=== PATIENT | male | born 1960 | race Caucasian/White ===

== ENCOUNTER 2016-09-02 09:51 | Day surgery (SDC) | payer OTHER ==
[2016-08-26 10:06] LABS: APPEARANCE,URINE CLEAR; BILIRUBIN,URINE NEGATIVE (NEGATIVE); GLUCOSE, URINE NEGATIVE (NEGATIVE); KETONES,URINE NEGATIVE (NEGATIVE); LEUKOCYTE ESTERASE,URINE NEGATIVE (NEGATIVE); NITRITE,URINE NEGATIVE (NEGATIVE); PROTEIN,URINE NEGATIVE (NEGATIVE); URINE SPECIFIC GRAVITY 1.027; UROBILINOGEN,URINE NEGATIVE mg/dL (<2.0)
[2016-08-26 10:13] LABS: ABSOLUTE EOSINOPHILS # (AUTO) 0.1 10^3/uL (0.0-0.6); ABSOLUTE LYMPHOCYTES (AUTO) 1.3 10^3/uL (0.5-4.7); ABSOLUTE MONOCYTES (AUTO) 0.7 10^3/uL (0.1-1.4); ABSOLUTE NEUT (AUTO) 3.9 10^3/uL (1.7-8.2); BASOPHILS % (AUTO) 0.5 % (0-2); HEMOGLOBIN 13.8 g/dL (13.5-17.0); HGB HCT DIFFERENCE 0.4; LYMPHOCYTES % (AUTO) 22.3 % (13-45); MEAN CORPUSCULAR HEMOGLOBIN 29.7 pg (27.0-33.4); MEAN CORPUSCULAR HGB CONC 33.6 g/dL (32.0-36.0); MEAN CORPUSCULAR VOLUME 88 fl (80-97); MONOCYTES % (AUTO) 11.9 % (3-13); RED BLOOD COUNT 4.64 10^6/uL (4.35-5.55); RED CELL DISTRIBUTION WIDTH 13.7 % (11.5-14.0); SEGMENTED NEUTROPHILS % (AUTO) 64.3 % (42-78)
[2016-08-26 10:37] LABS: ANION GAP 10 (5-19); BLOOD UREA NITROGEN 22 mg/dL (7-20); CALCIUM 9.4 mg/dL (8.4-10.2); CARBON DIOXIDE 26 mmol/L (22-30); CHLORIDE 106 mmol/L (98-107); CREATININE RESULT 1.01 mg/dL (0.52-1.25); GLUCOSE 104 mg/dL (75-110); POTASSIUM 4.5 mmol/L (3.6-5.0); SODIUM 142.3 mmol/L (137-145)
--- NOTE | 2016-08-26 11:00 | EKG REPORT ---
SEVERITY:- BORDERLINE ECG - SINUS RHYTHM BORDERLINE LEFT AXIS DEVIATION BORDERLINE T ABNORMALITIES, INFERIOR LEADS : Confirmed by: Ashley Roth 26-Aug-2016 10:59:53
[~2016-09-02 09:51] MED LIST: CEFAZOLIN 2 GM/D5W RTU 2 GM/50 ML RTUPB IV PRN; RINGERS SOLUTION,LACTATED 1,000 ML IV PRN
[2016-09-02] MEDS ORDERED: GLYCOPYRROLATE INJ 0.4 MG/2 ML VIAL ONE (09:54)
[2016-09-02] MEDS ORDERED: DEXAMETHASONE SOD PHOSPHATE INJ 4 MG/1 ML VIAL ONE (09:54)
[2016-09-02] MEDS ORDERED: METOCLOPRAMIDE HCL INJ/PF 10 MG/2 ML SDV ONE (09:54)
[2016-09-02] MEDS ORDERED: KETOROLAC TROMETHAMINE 60 MG/2 ML SDV ONE (09:54)
[2016-09-02] MEDS ORDERED: ROCURONIUM BROMIDE INJ 50 MG/5 ML VIAL IV ONE (09:54)
[2016-09-02] MEDS ORDERED: SUCCINYLCHOLINE CHLORIDE INJ 200 MG/10 ML VIAL ONE (09:54)
[2016-09-02] MEDS ORDERED: ONDANSETRON HCL INJ/PF 4 MG/2 ML SDV ONE (09:54)
[2016-09-02] MEDS ORDERED: LIDOCAINE 2% INJ-PF (20 MG/ML) 10 ML AMPUL ONE (09:54)
[2016-09-02] MEDS ORDERED: BUPIVACAINE HCL 0.5 % INJ/PF 30 ML SDV ONE (11:30)
[2016-09-02] MEDS ORDERED: PROPOFOL INJ 200 MG/20 ML VIAL IV ONE (12:47)
[2016-09-02] MEDS ORDERED: MIDAZOLAM 2 MG/2 ML INJ ONE (12:47)
[2016-09-02] MEDS ORDERED: FENTANYL CITRATE INJ/PF 250 MCG/5 ML AMPULE ONE (12:47)
[2016-09-02] MEDS ORDERED: DEXMEDETOMIDINE INJ 80 MCG/20 ML VIAL IV ONE (12:47)
[2016-09-02] MEDS ORDERED: ACETAMINOPHEN 100 ML IV ONE (12:47)
[2016-09-02] MEDS ORDERED: EPHEDRINE SULFATE INJ 50 MG/1 ML AMPULE ONE (12:48)
[2016-09-02] MEDS ORDERED: FENTANYL CITRATE INJ/PF 100 MCG/2 ML AMPUL IV PRN ×3 (14:17)
[2016-09-02] MEDS ORDERED: MORPHINE SULFATE 10 MG/ML INJ IV PRN ×2 (14:17→14:48)
[2016-09-02] MEDS ORDERED: DIPHENHYDRAMINE HCL 50 MG/ML VIAL IV PRN (14:17)
[2016-09-02] MEDS ORDERED: PROMETHAZINE HCL INJ 25 MG/1 ML VIAL IV PRN ×2 (14:17)
[2016-09-02] MEDS ORDERED: MEPERIDINE HCL/PF INJ 25 MG/1 ML DISP.SYRIN IV PRN (14:17)
--- NOTE | 2016-09-02 14:37 | PDOC DISCHARGE SUMMARY ---
Discharge Summary (SDC) - Discharge Final Diagnosis: Painful Hardware Left Wrist Date of Surgery: 09/02/16 Discharge Date: 09/02/16 Condition: Good Treatment or Instructions: Schedule Follow Up w/ Dr. Baldev Sherman @ [facility] for Surgery to be seen in 10-14 days or as scheduled Tiline: Matthews: Argyle: May remove dressing on postop day #3 keep incision covered and dry. Ice and elevate May begin finger range of motion attempting to make full fist. Stool softener of choice when on pain medication. Prescriptions: Oxycodone HCl 5 mg PO Q6 PRN #45 tablet PRN Reason: Discharge Diet: As Tolerated Discharge Activity: No Lifting Over 10 Pounds, No Lifting/Push/Pulling Report the Following to Your Physician Immediately: Increase in Pain, Fever over 101 Degrees, Unusual Bleeding, Redness, Swelling, Warmth, Increased Soreness, Drainage-Foul Smelling, Numbness, Tingling Sensation
[2016-09-02] MEDS: FENTANYL CITRATE INJ/PF 100 MCG/2 ML AMPUL ONE ×3 (14:40→14:50)
[2016-09-02] MEDS ORDERED: OXYCODONE-ACETAMINOPHEN 5-325 MG TABLET PO PRN (14:48)
[2016-09-02] MEDS ORDERED: ONDANSETRON HCL INJ/PF 4 MG/2 ML SDV IV PRN (14:48)
--- NOTE | 2016-09-02 14:48 | Operative Report ---
Operative Report DATE OF SURGERY: 09/02/16 PREOPERATIVE DIAGNOSIS: Painful Hardware Right Left POSTOPERATIVE DIAGNOSIS: Same + Extensor Adhesions OPERATION: Removal Hardware Left Wrist w/ Extensor Tenolysis SURGEON: JACQUI CABRERA ANESTHESIA: GA COMPLICATIONS: None ESTIMATED BLOOD LOSS: Minimal PROCEDURE: Indication for above procedure: Pleasant 56-year-old male who sustained a somewhat complex injury to his left wrist in the early 1999's. He underwent 4 corner fusion which ultimately failed and then a total wrist fusion in 2011. He states he had been doing well until he began having pain along the dorsum of his hand. X-rays were done in my office which demonstrate loosening of the fusion plate. Furthermore patient complained of difficulty abducting the middle and ring digits likely secondary to extensor adhesions. at that point we discussed treatment options including operative versus nonoperative intervention. After discussing risks and benefits patient consented for removal of hardware left wrist with possible revision arthrodesis, extensor tenolysis Procedure In Detail: Patient was seen and evaluated in the preoperative holding area. The LEFT upper extremity was initialized and marked. Patient received 2g of Ancef IV for bacterial prophylaxis. Patient was taken back to the operative room where transferred to the operative table and placed under general anesthesia. Once they were adequately anesthetized a nonsterile tourniquet was placed on the upper extremity. A surgical team debriefing was performed ensuring all instrumentation was available, the surgical procedure was discussed with possible concerns reviewed. The upper extremity was prepped with chlorhexidine and alcohol and draped in a sterile fashion. A timeout was done identifying correct patient, procedure and extremity everyone in attendance agree with this and verbalized no concerns. The extremity was exsanguinated the tourniquet was inflated to 200 mmHg. Patient's previous longitudinal skin incision was utilized. Blunt dissection was done distally down to the plate. There is significant scarring at the distal aspect of the plate with evidence of bony overgrowth. The extensor tendons to the index through small finger were identified and retracted. The bone overlying the plate was carefully removed. All 3 distal screws were visualized and removed in their entirety. I then proceeded with removal of the adjacent screw. The appropriate size screwdriver was selected and the screw was attempted to be removed however the screw head was loose and broke from the underlying screw at this point I turned my attention to removal of the most proximal screws. The superficial radial nerve was identified within the skin flap and retracted. Blunt dissection was performed through the EDC/ECRB interval and the proximal aspect of the plate was isolated. The proximal 3 screws were identified and removed in their entirety. The plate was then able to be lifted with a elevator and removed from the distal aspect. I then turned my attention to the broken screw within the third metacarpal base. Utilizing the [employer] screw removal set the appropriate size cone was chosen to remove excess bone from around the screw. Once this was completed I was able to grab a small portion of the screw and removed in its entirety. Any excess bone debris was removed. All screw holes were curetted to good bleeding bone. Under C-arm fluoroscopy I confirmed no evidence of motion at the radiocarpal articulation with complete bone bridging. There was some micromotion at the third CMC joint but I did not feel third CMC arthrodesis was required. The wound was then copiously irrigated with normal saline. The hole at the third metacarpal base was approximately 2 mm in diameter and thus I decided to proceed with allograft bone grafting. Utilizing [employer] DBX the hole was filled with a proximally 0.7 mL of bone matrix. I then closed the soft tissue of the CMC capsule over the bone defect with interrupted 0 Vicryl sutures were inverted to avoid irritation of the extensor tendons. I then performed an extensive extensor tenolysis of the index middle and ring finger including tenolysis at the level of the extensor retinaculum of the wrist and distal forearm. The EPL was also tenolysed as well. The extensor tenolysis was complex and compounded by the fact there is previous hardware crossing the wrist articulation with significant scarring not only to the hardware but underlying metacarpal. Any adhesions were carefully removed until there was full passive motion of all digits. Active motion was tested by checking excursion of the tendon from the proximal forearm wound confirming full digit extension. The tourniquet was then deflated. Compression was applied for 2 minutes. Any peripheral vasculature was coagulated with bipolar cautery until the wound was dry. Subcutaneous tissues were closed with interrupted 3-0 Monocryl suture. Skin was closed a running subcuticular 3-0 Monocryl reinforced with Dermabond and Steri-Strips. 20 mL of 0.5% Marcaine without epinephrine was injected for postoperative pain control. Wound was dressed with 4 x 4's and a soft dressing. Sponge counts, instrument counts, needle counts counts were correct. Patient was then awoken from anesthesia. Transferred from the operating room table to the operating room stretcher. There was no intraoperative complications patient tolerated procedure well stable to PACU. Postoperative plan: Patient will follow the office in 2 weeks at which point we will obtain radiographs. Patient will begin digit range of motion immediately.
[2016-09-02] MEDS ORDERED: OXYCODONE-ACETAMINOPHEN 5-325 MG TABLET ONE (15:18)
[2016-09-02 16:24] VITALS: BP 119/74
== END 2016-09-02 16:20 | disposition home or self-care (01) ==
LOC: OROUT 09:51
PROVIDERS: ATTEND Orthopaedic Surgery
PROC: 0RPP04Z Removal of Internal Fixation Device from Left Wrist Joint, Open Approach (ICD-10-PCS; 2016-09-02)
PROC: 0LN60ZZ Release Left Lower Arm and Wrist Tendon, Open Approach (ICD-10-PCS; principal; 2016-09-02 12:30)
DX: M19.132 Post-traumatic osteoarthritis, left wrist (principal); Z47.2 Encounter for removal of internal fixation device; E78.00 Pure hypercholesterolemia, unspecified; I10 Essential (primary) hypertension; G89.4 Chronic pain syndrome; K21.9 Gastro-esophageal reflux disease without esophagitis; F32.9 Major depressive disorder, single episode, unspecified; F41.9 Anxiety disorder, unspecified; Z79.1 Long term (current) use of non-steroidal anti-inflammatories (NSAID); Z86.14 Personal history of Methicillin resistant Staphylococcus aureus infection; Z79.899 Other long term (current) drug therapy
CPT/HCPCS: 93005; 36415; 85025; 80048; 81001; 71020; 73100; 93010; 25295 ×4; 20680; J2250; J3490 ×4; J1100; J1885; J3010 ×2; J2765; J0330; J2405; J2704; J0690; J0131; 01830

== ENCOUNTER → 2016-10-20 | Outpatient (CLI) | payer OTHER ==
[2016-10-20 11:59] LABS: ABSOLUTE EOSINOPHILS # (AUTO) 0.1 10^3/uL (0.0-0.6); ABSOLUTE LYMPHOCYTES (AUTO) 1.1 10^3/uL (0.5-4.7); ABSOLUTE MONOCYTES (AUTO) 0.6 10^3/uL (0.1-1.4); ABSOLUTE NEUT (AUTO) 3.6 10^3/uL (1.7-8.2); BASOPHILS % (AUTO) 0.8 % (0-2); HEMATOCRIT 38.4 % (37.9-51.0); HEMOGLOBIN 13.3 g/dL (13.5-17.0); HGB HCT DIFFERENCE 1.5; LYMPHOCYTES % (AUTO) 20.1 % (13-45); MEAN CORPUSCULAR HEMOGLOBIN 29.8 pg (27.0-33.4); MEAN CORPUSCULAR HGB CONC 34.7 g/dL (32.0-36.0); MEAN CORPUSCULAR VOLUME 86 fl (80-97); MONOCYTES % (AUTO) 11.6 % (3-13); PROTHROMBIN TIME 12.6 SEC (11.4-15.4); RED BLOOD COUNT 4.46 10^6/uL (4.35-5.55); RED CELL DISTRIBUTION WIDTH 13.9 % (11.5-14.0); SEGMENTED NEUTROPHILS % (AUTO) 65.5 % (42-78); WHITE BLOOD COUNT 5.5 10^3/uL (4.0-10.5)
[2016-10-20 12:00] LABS: PARTIAL THROMBOPLASTIN TIME 27.7 SEC (23.5-35.8)
[2016-10-20 12:08] LABS: APPEARANCE,URINE SLIGHTLY-CLOUDY; BILIRUBIN,URINE NEGATIVE (NEGATIVE); GLUCOSE, URINE NEGATIVE (NEGATIVE); KETONES,URINE TRACE mg/dL (NEGATIVE); LEUKOCYTE ESTERASE,URINE NEGATIVE (NEGATIVE); NITRITE,URINE NEGATIVE (NEGATIVE); PROTEIN,URINE NEGATIVE (NEGATIVE); URINE SPECIFIC GRAVITY 1.032; UROBILINOGEN,URINE NEGATIVE mg/dL (<2.0)
== END ==
LOC: OD 10:34
PROVIDERS: ATTEND Pain Medicine Interventional Pain Medicine
DX: Z79.01 Long term (current) use of anticoagulants (principal)
CPT/HCPCS: 36415; 81001; 85025; 85610; 85730

== ENCOUNTER 2016-11-25 08:23 | Day surgery (SDC) | payer OTHER ==
[2016-11-21 11:33] LABS: HEMATOCRIT 39.5 % (37.9-51.0); HEMOGLOBIN 13.6 g/dL (13.5-17.0); HGB HCT DIFFERENCE 1.3; MEAN CORPUSCULAR HGB CONC 34.4 g/dL (32.0-36.0); MEAN CORPUSCULAR VOLUME 87 fl (80-97); RED BLOOD COUNT 4.52 10^6/uL (4.35-5.55); RED CELL DISTRIBUTION WIDTH 13.9 % (11.5-14.0); WHITE BLOOD COUNT 7.8 10^3/uL (4.0-10.5)
[2016-11-21 11:46] LABS: PROTHROMBIN TIME 12.8 SEC (11.4-15.4)
[2016-11-21 11:47] LABS: PARTIAL THROMBOPLASTIN TIME 29.8 SEC (23.5-35.8)
[2016-11-21 11:50] LABS: APPEARANCE,URINE SLIGHTLY-CLOUDY; BILIRUBIN,URINE NEGATIVE (NEGATIVE); GLUCOSE, URINE NEGATIVE (NEGATIVE); KETONES,URINE TRACE mg/dL (NEGATIVE); LEUKOCYTE ESTERASE,URINE NEGATIVE (NEGATIVE); NITRITE,URINE NEGATIVE (NEGATIVE); PROTEIN,URINE NEGATIVE (NEGATIVE); URINE SPECIFIC GRAVITY 1.036; UROBILINOGEN,URINE NEGATIVE mg/dL (<2.0)
--- NOTE | 2016-11-21 19:37 | EKG REPORT ---
SEVERITY:- ABNORMAL ECG - SINUS BRADYCARDIA BORDERLINE LEFT AXIS DEVIATION NONSPECIFIC T ABNORMALITIES, INFERIOR LEADS : Confirmed by: Ashley Roth 21-Nov-2016 19:36:43
[~2016-11-25 08:23] MED LIST changes: +BUPIVACAINE HCL 0.25% /EPINEPHRINE INJ/PF 30 ML SDV ONE; +CEFAZOLIN 1 GM/D5W RTU 1 GM/50 ML RTUPB IV PRN; -CEFAZOLIN 2 GM/D5W RTU 2 GM/50 ML RTUPB IV PRN; +LACTATED RINGERS 1000 ML IV PRN; +LIDOCAINE 0.5% INJ-PF (5 MG/ML) 50 ML SDV SUBCUT PRN; +LIDOCAINE 1% INJ-PF (10 MG/ML) 30 ML SDV ONE; -RINGERS SOLUTION,LACTATED 1,000 ML IV PRN; +SODIUM BICARBONATE 8.4% INJ 50 MEQ/50 ML DISP.SYRIN ONE
[2016-11-25] MEDS ORDERED: LIDOCAINE 1% INJ-PF (10 MG/ML) 30 ML SDV ONE (09:34)
[2016-11-25] MEDS ORDERED: MIDAZOLAM 2 MG/2 ML INJ ONE (11:12)
[2016-11-25] MEDS ORDERED: PROPOFOL INJ 200 MG/20 ML VIAL IV ONE (11:13)
[2016-11-25] MEDS ORDERED: FENTANYL CITRATE INJ/PF 100 MCG/2 ML AMPUL ONE (11:13)
[2016-11-25] MEDS ORDERED: DEXMEDETOMIDINE INJ 80 MCG/20 ML VIAL IV ONE (11:18)
[2016-11-25] MEDS ORDERED: DIPHENHYDRAMINE HCL 50 MG/ML VIAL IV PRN (12:22)
[2016-11-25] MEDS ORDERED: MEPERIDINE HCL/PF INJ 25 MG/1 ML DISP.SYRIN IV PRN (12:22)
[2016-11-25] MEDS ORDERED: FENTANYL CITRATE INJ/PF 100 MCG/2 ML AMPUL IV PRN ×3 (12:22)
[2016-11-25] MEDS ORDERED: OXYCODONE-ACETAMINOPHEN 5-325 MG TABLET PO PRN ×2 (12:22)
[2016-11-25] MEDS ORDERED: PROMETHAZINE HCL INJ 25 MG/1 ML VIAL IV PRN ×2 (12:22)
[2016-11-25] MEDS ORDERED: MORPHINE SULFATE 10 MG/ML INJ IV PRN (12:22)
[2016-11-25] MEDS ORDERED: CEFAZOLIN INJ 1 GM VIAL ONE (13:26)
[2016-11-25] MEDS: FENTANYL CITRATE INJ/PF 100 MCG/2 ML AMPUL ONE ×2 (13:37→13:49)
[2016-11-25] MEDS ORDERED: ONDANSETRON HCL INJ/PF 4 MG/2 ML SDV IV PRN (13:47)
[2016-11-25] MEDS ORDERED: HYDROCODONE/ACETAMINOPHEN 5-325 MG TABLET PO PRN (13:47)
--- NOTE | 2016-11-25 13:53 | OPERATIVE REPORT E ---
Operative Report NAME: ALEXANDREA URIBE : 1960 AGE: 56Y DATE OF SURGERY: 11/25/2016 ROOM: PREOPERATIVE DIAGNOSIS: Post lumbar laminectomy pain syndrome. POSTOPERATIVE DIAGNOSIS: Post lumbar laminectomy pain syndrome. PROCEDURE PERFORMED: Implantation of dual-octrode spinal cord stimulator system, Medtronic, and implantable pulse generator. PRIMARY SURGEON: CHARLENE SOLARES M.D. SUBSTATION INSPECTOR: Dr. Bossman Scott ANESTHESIA: Monitored anesthesia care with sedation. OPERATIVE FINDINGS: Dual-octrode lead placed at mid body T8 extending to the top of the T10 vertebral body. ESTIMATED BLOOD LOSS: 5 mL. COMPLICATIONS: None. SPECIMENS REMOVED: None. PERIOPERATIVE ANTIBIOTICS: Ancef 1 g was given perioperatively. OPERATIVE INDICATIONS: The patient is a 56-year-old male with post lumbar laminectomy pain syndrome. He underwent a successful trial of spinal cord stimulator system with Medtronic previously and had excellent relief in pain. He has opted to proceed with permanent implantation. Risks and benefits were discussed at length with the patient, including, but not limited to, bleeding, bruising, infection, injury to nerves, arteries, veins, loss of bowel or bladder function, paralysis and potentially even . The patient expressed understanding and agreed to proceed. OPERATIVE DETAIL: The patient was accompanied by the anesthesia staff to the operative suite where he was placed in a prone position. All pressure points were checked and padded. Standard ASA lines and monitors were applied and sedation was commenced. The patient was given 1 g Ancef perioperatively. The patient was prepped and draped in sterile fashion using chlorhexidine gluconate solution. He was draped using Perry drape and Ioban. The C-arm for fluoroscopic guidance was also draped into the sterile field. Using AP fluoroscopy, the planned site for needle entry was marked and the incision site was anesthetized with buffered 1% lidocaine using a 25-gauge needle. Deeper tissues were subsequently infiltrated with 0.25% Marcaine with 1:100,000 epinephrine in a volume of approximately 10 mL. Additionally, the planned site for implantable pulse generator implantation on the left buttock was likewise anesthetized with buffered 1% lidocaine over the skin and 0.25% Marcaine with epinephrine in deeper tissues. An incision was made using a #15 blade scalpel in the skin. Subsequently, blunt and Bovie dissection was utilized to expose the prevertebral fascia. Adequate hemostasis was noted. Once the prevertebral fascia was exposed, a 25-gauge, 3.5-inch spinal needle was advanced under intermittent AP fluoroscopic guidance to an area just short of the T12-L1 interspace. This tract was anesthetized with 1% buffered lidocaine. Subsequently, a 16-gauge Tuohy needle provided by the Medtronic kit was advanced under intermittent AP and lateral fluoroscopic guidance to the T1-T2 interspace. This was in a left paramedian approach. Loss of resistance was obtained with normal saline. At this juncture the lead provided by the Medtronic instruments sales representative, the 90-cm lead, was advanced through the needle and confirmed to be in the posterior epidural space with lateral fluoroscopy. An additional needle placement was then performed at the same interspace in the left paramedian approach with easy loss of resistance to normal saline and posterior placement of the second lead. Leads were advanced under continuous fluoroscopic guidance to the mid body of T8 spanning T9 vertebral body and to the top of T10 vertebral body. At this juncture the leads were connected to the programming device and the Medtronic instruments sales representative in the room spoke with the patient who was awakened at the time and was found to have excellent stimulation at all painful areas. At this point 0 [address] was used to place a pursestring suture around each of the needles. The needles were subsequently removed under continuous fluoroscopic guidance to ensure no lead migration. Once needles were removed over the leads, the anchor provided by the Medtronic kit was advanced over the leads and deployed after pursestring suture was tightened. The anchor was then affixed to the prevertebral fascia utilizing the tied pursestring suture and an additional 0-Mersilene stay suture. This was performed in the exact same fashion on the other lead. The incision site was then copiously irrigated with a dilute Betadine solution. Attention was then turned to the left buttock pocket where an incision was made using a #15 blade scalpel and deep and blunt dissection was utilized to create an adequately sized pocket. Adequate hemostasis was assured with electrocautery. Tunneling was then performed using initial numbing with a 3.5-inch 25-gauge spinal needle and 1% lidocaine and then the tunneling tool provided by the Medtronic instruments sales representative was utilized to tunnel from midline to the buttock pocket. The leads were threaded through the tunneling device and connected to the implantable pulse generator. At this point impedances were checked and noted to be good. The leads were placed in strain relief loops both in the midline and in the buttock pocket, and the implantable pulse generator was placed in the pocket with ease. Both incisions were copiously irrigated with dilute Betadine solution. Subsequently closure ensued in an interrupted fashion with 3-0 Vicryl suture. Skin was then closed using Dermabond tape and glue. The patient tolerated the procedure well and was accompanied by anesthesia staff to the postanesthesia recovery unit. He will be seen in followup at [facility] tomorrow for a wound check. DICTATING PHYSICIAN: CHARLENE SOLARES M.D. [id number] PHY#: [id number] ID: [id number] JOB#: [id number] ACCT: [id number] cc:CHARLENE SOLARES M.D. >
[2016-11-25 18:00] VITALS: BP 100/59
== END 2016-11-25 15:35 | disposition home or self-care (01) ==
LOC: OROUT 08:23
PROVIDERS: ATTEND Pain Medicine Interventional Pain Medicine
PROC: 00HU3MZ Insertion of Neurostimulator Lead into Spinal Canal, Percutaneous Approach (ICD-10-PCS; 2016-11-25)
PROC: 0JH70MZ Insertion of Stimulator Generator into Back Subcutaneous Tissue and Fascia, Open Approach (ICD-10-PCS; principal; 2016-11-25 10:30)
DX: M54.16 Radiculopathy, lumbar region (principal); M96.1 Postlaminectomy syndrome, not elsewhere classified; E78.00 Pure hypercholesterolemia, unspecified; I10 Essential (primary) hypertension; R53.82 Chronic fatigue, unspecified; Z79.899 Other long term (current) drug therapy; Z87.891 Personal history of nicotine dependence
CPT/HCPCS: 93005; 36415; 85027; 85610; 85730; 81001; 71020; 72080; 93010; 63685; 63650; C1820; C1787; J2250; J3490 ×3; J0690 ×2; J3010; J2704; 300

== ENCOUNTER → 2017-03-10 | Outpatient (CLI) | payer OTHER ==
--- NOTE | 2017-03-10 10:17 | RADIOLOGY REPORT (SQ) ---
EXAM DESCRIPTION: CHEST PA/LATERAL COMPLETED DATE/TIME: 03/10/2017 9:23 am REASON FOR STUDY: CONTACT WITH AND (SUSPECTED) EXPOSURE TO ASBESTOS COMPARISON: Two-view chest 11/21/2016, 08/26/2016 EXAM PARAMETERS: NUMBER OF VIEWS: two views TECHNIQUE: Digital Frontal and Lateral radiographic views of the chest acquired. RADIATION DOSE: NA LIMITATIONS: none FINDINGS: LUNGS AND PLEURA: No opacities, masses or pneumothorax. No pleural effusion. MEDIASTINUM AND HILAR STRUCTURES: No masses or contour abnormalities. Benign epicardial fat pad ashli cent to the left ventricular apex HEART AND VASCULAR STRUCTURES: Heart normal size. No evidence for failure. BONES: Lower cervical fusion hardware at the upper edge of the field of view. Thoracic neurostimulat or electrodes over the lower thoracic spine. HARDWARE: None in the chest. OTHER: No other significant finding. IMPRESSION: NO SIGNIFICANT RADIOGRAPHIC FINDING IN THE CHEST. No pleural effusions or calcified/noncalcified pleural plaques. TECHNICAL DOCUMENTATION: JOB ID: [id number] [employer]- All Rights Reserved
== END ==
LOC: OD 09:07
PROVIDERS: ATTEND Family Medicine
DX: Z77.090 Contact with and (suspected) exposure to asbestos (principal)
CPT/HCPCS: 71020

== ENCOUNTER → 2017-06-30 | Outpatient (CLI) | payer MEDICARE, OTHER ==
--- NOTE | 2017-06-30 12:16 | RADIOLOGY REPORT (SQ) ---
EXAM DESCRIPTION: FOREARM RIGHT COMPLETED DATE/TIME: 06/30/2017 11:43 am REASON FOR STUDY: UNSPECIFIED INJURY OF RIGHT FOREARM, INITIAL ENCOUNTER S59.911A UNSPECIFIED INJUR Y OF RIGHT FOREARM, INITIAL ENCOUN COMPARISON: None. NUMBER OF VIEWS: Two views. TECHNIQUE: Two radiographic images acquired of the right forearm, including elbow and wrist in at le ast one projection. LIMITATIONS: None. FINDINGS: MINERALIZATION: Normal. BONES: No acute fracture. No worrisome bone lesions. SOFT TISSUES: No obvious swelling or foreign body. OTHER: No other significant finding. IMPRESSION: NEGATIVE STUDY OF THE RIGHT FOREARM. NO RADIOGRAPHIC EVIDENCE OF ACUTE INJURY. TECHNICAL DOCUMENTATION: JOB ID: [id number] [employer]- All Rights Reserved
== END ==
LOC: OD 11:29
PROVIDERS: ATTEND Nurse Practitioner Family
DX: S59.911A Unspecified injury of right forearm, initial encounter (principal); X58.XXXA Exposure to other specified factors, initial encounter

== ENCOUNTER → 2017-09-07 | Outpatient (CLI) | payer MEDICARE, OTHER ==
--- NOTE | 2017-09-07 16:37 | RADIOLOGY REPORT (SQ) ---
EXAM DESCRIPTION: C SP 4 OR 5 VIEWS COMPLETED DATE/TIME: 09/07/2017 2:05 pm REASON FOR STUDY: OTHER SPECIFIED DORSOPATHIES, [id number] REGION M53.81 OTHER SPECIFIE D DORSOPATHIES, [id number] COMPARISON: None. NUMBER OF VIEWS: Five views. TECHNIQUE: AP, lateral, obliques and odontoid radiographic images acquired of the cervical spine. LIMITATIONS: None. FINDINGS: MINERALIZATION: Normal. ALIGNMENT: Anatomic. VERTEBRAE: Vertebral bodies of normal height. DISCS: Status post anterior fusion at C4-5, C5-6 and C6-7. Screw and plate device present anteriorly . Solid bony union appears to be present. Mild disc space loss at C3-4 with small osteophytes. FORAMINA: Severe narrowing on the left at C6-7. LATERAL AND POSTERIOR ELEMENTS: Status post posterior fusion at C4-5, C5-6 and C6-7 with bilateral ro d and screw devices noted posteriorly at these levels. Wire fusion is also noted along the spinous p rocesses of C6 and C7 HARDWARE: Screw and plate device anteriorly with nilam and screw device present posteriorly SOFT TISSUES: No masses or calcifications. Lung apices clear. OTHER: No other significant finding. IMPRESSION: Degenerative changes and postsurgical changes as described. TECHNICAL DOCUMENTATION: JOB ID: [id number] [employer]- All Rights Reserved
== END ==
LOC: OD 13:45
PROVIDERS: ATTEND Pain Medicine Interventional Pain Medicine
DX: M53.81 Other specified dorsopathies, occipito-atlanto-axial region (principal); Z98.1 Arthrodesis status
CPT/HCPCS: 72050

== ENCOUNTER → 2017-12-29 | Outpatient (CLI) | payer OTHER ==
--- NOTE | 2017-12-30 09:43 | RADIOLOGY REPORT (SQ) ---
EXAM DESCRIPTION: PET CT WHOLE BODY COMPLETED DATE/TIME: 12/29/2017 10:10 pm REASON FOR STUDY: ELEVATED FGF-23 COMPARISON: None. RADIONUCLIDE AND DOSE: 10.0 mCi F18 FDG The route of agent administration: Intravenous FASTING BLOOD SUGAR: 77 mg/dl CONTRAST TYPE AND DOSE: No CT contrast given. TECHNIQUE: Blood glucose level was verified. Above dose of FDG was injected intravenously. 2-D seg mented attenuation correction images were obtained through the entire body. Noncontrast CT images we re obtained for attenuation correction and fusion with emission images. CT images were performed wit hout oral or intravenous contrast and are not sensitive for parenchymal lesions. A series of overlap ping emission PET images were obtained. Images reviewed and manipulated at independent work station by the radiologist. Images stored on PACS. LIMITATIONS: None. FINDINGS: HEAD AND NECK: No areas of abnormal metabolic activity in the soft tissues of the head and neck. CHEST: No areas of abnormal metabolic activity in the chest. ABDOMEN AND PELVIS: No areas of abnormal metabolic activity in the abdomen or pelvis. Expected physi ologic activity is present in the genitourinary system and bowel. EXTREMITIES: Focal area of increased activity in the soft tissues of the left hand between the 1st an d 2nd metacarpal. Mean SUV 6.0. No discrete finding on CT imaging. No other areas of abnormal meta bolic activity in the soft tissues of the extremities. BONES: No abnormal metabolic activity in the visualized skeleton. ADDITIONAL CT FINDINGS: Previous spinal surgery and orthopedic surgery with hardware. No other addit ional significant findings on the noncontrast CT images. OTHER: Background liver activity mean SUV 2.5. Background blood pool activity mean SUV 1.8. No othe r significant findings. IMPRESSION: 1. FOCAL AREA OF INCREASED METABOLIC ACTIVITY IN THE SOFT TISSUES OF THE LEFT HAND BETWEEN THE 1ST AN D 2ND METACARPAL. THIS IS NONSPECIFIC AND MAY BE RELATED TO MUSCULAR ACTIVITY OR POSSIBLY INFLAMMATI ON. SOFT TISSUE LESION OR TUMOR CANNOT BE ENTIRELY EXCLUDED. RECOMMEND CLINICAL CORRELATION AND IF THERE ARE ANY SUSPICIOUS FINDINGS, MAY CONSIDER MRI OF THE HAND. 2. OTHERWISE UNREMARKABLE PET-CT. NO OTHER AREAS OF ABNORMAL ACTIVITY. TECHNICAL DOCUMENTATION: JOB ID: [id number] [employer]- All Rights Reserved Reading location - IP/workstation name: [email or web address]
== END ==
LOC: RAD 17:11
PROVIDERS: ATTEND Internal Medicine Endocrinology, Diabetes & Metabolism
DX: R78.89 Finding of other specified substances, not normally found in blood (principal)
CPT/HCPCS: 78816; A9552

== ENCOUNTER 2018-08-06 07:03 | Day surgery (SDC) | payer OTHER, MEDICARE ==
[~2018-08-06 07:03] MED LIST changes: -BUPIVACAINE HCL 0.25% /EPINEPHRINE INJ/PF 30 ML SDV ONE; -CEFAZOLIN 1 GM/D5W RTU 1 GM/50 ML RTUPB IV PRN; -LACTATED RINGERS 1000 ML IV PRN; -LIDOCAINE 0.5% INJ-PF (5 MG/ML) 50 ML SDV SUBCUT PRN; -LIDOCAINE 1% INJ-PF (10 MG/ML) 30 ML SDV ONE; +LIDOCAINE 2% INJ-PF (20 MG/ML) 10 ML AMPUL ONE; +MIDAZOLAM 2 MG/2 ML INJ ONE; +PROPOFOL INJ 200 MG/20 ML VIAL IV ONE; -SODIUM BICARBONATE 8.4% INJ 50 MEQ/50 ML DISP.SYRIN ONE
[2018-08-06] MEDS ORDERED: ALBUTEROL SULFATE 0.083% NEB 2.5 MG/3 ML AMPUL NEB ONE (08:20)
[2018-08-06] MEDS ORDERED: FENTANYL CITRATE INJ/PF 100 MCG/2 ML AMPUL IV PRN ×3 (08:58)
[2018-08-06] MEDS ORDERED: MEPERIDINE HCL/PF INJ 25 MG/1 ML DISP.SYRIN IV PRN (08:58)
[2018-08-06] MEDS ORDERED: PROMETHAZINE HCL INJ 25 MG/1 ML VIAL IV PRN ×2 (08:58)
[2018-08-06] MEDS ORDERED: DIPHENHYDRAMINE HCL 50 MG/ML VIAL IV PRN (08:58)
[2018-08-06] MEDS ORDERED: ACETAMINOPHEN 325 MG TABLET PO PRN (09:42)
[2018-08-06] MEDS ORDERED: DEXTROSE 5%-1/2 NORMAL SALINE 1,000 ML IV PRN (09:42)
[2018-08-06] MEDS ORDERED: PROMETHAZINE HCL INJ 25 MG/1 ML VIAL INJ PRN (10:15)
[2018-08-06] MEDS ORDERED: SIMETHICONE 80 MG TAB.CHEW PO PRN (10:15)
[2018-08-06 10:35] VITALS: BP 117/72
--- NOTE | 2018-08-06 12:11 | Operative Report ---
Operative Report DATE OF SURGERY: 08/06/18 Operative Report: The risks, benefits and alternatives of the procedure including the risks of bleeding, perforation requiring surgery have been explained to the patient in detail and informed consent was obtained. The patient is brought back to the operating room and placed in the left, lateral decubital position. Timeout was called. Propofol medication is administered. A rectal examination is done which did did not reveal any masses, tears or fissures. An Olympus videoscope was introduced into the patient's rectum. The scope was then carefully advanced all the way to this cecum. The cecum was identified by the usual anatomical landmarks including the ileocecal valve as well as the appendiceal office. Photodocumentation is obtained. The scope was then sequentially pulled back via the various segments of the colon including the ascending colon, hepatic fle xure, transverse colon, splenic flexure, descending colon and finally into the rectosigmoid portions of the colon. Retroflexion maneuver was performed. The risks benefits and alternatives of the procedure explained to the patient in detail and informed consent is obtained.A GIF Olympus video scope was inserted into the patient's mouth and hypopharynx, the esophagus is identified intubated and insufflated, the scope was then advanced through the esophagus stomach and duodenum, retroflexion maneuver is done, the esophagus stomach and first and second portions of the duodenum examined. PREOPERATIVE DIAGNOSIS: Colorectal cancer screening. Gastroesophageal reflux disease POSTOPERATIVE DIAGNOSIS: Rectal polyp attempted snare polypectomy, no tissue retrieved. Internal hemorrhoids. Hiatal hernia. Gastritis status post biopsy rule out Helicobacter pylori OPERATION: Colonoscopy with snare polypectomy. EGD with biopsy SURGEON: NICOLA BROWNING ANESTHESIA: LMAC TISSUE REMOVED OR ALTERED: As noted above. COMPLICATIONS: None. ESTIMATED BLOOD LOSS: None. INTRAOPERATIVE FINDINGS: As noted above. PROCEDURE: Patient tolerated the procedure well. No immediate postprocedure complications are noted. Patient discharged in good condition. Discharge date 08/06/2018. Discharge diet: Regular. Discharge activity: Regular. 2-3-week follow-up to discuss findings. Patient is instructed to call the office or proceed to the emergency room should he be any further problems or questions. 5-year surveillance colonoscopy.
--- NOTE | 2018-08-06 12:14 | EKG REPORT ---
SEVERITY:- ABNORMAL ECG - SINUS RHYTHM NONSPECIFIC T ABNORMALITIES, INFERIOR LEADS : Confirmed by: Jeffrey Graham MD 06-Aug-2018 12:13:47
== END 2018-08-06 10:40 | disposition home or self-care (01) ==
LOC: OROUT 07:03
PROVIDERS: ATTEND Internal Medicine Gastroenterology
DX: Z12.11 Encounter for screening for malignant neoplasm of colon (principal); D12.7 Benign neoplasm of rectosigmoid junction; K64.8 Other hemorrhoids; K29.70 Gastritis, unspecified, without bleeding; K44.9 Diaphragmatic hernia without obstruction or gangrene; K21.9 Gastro-esophageal reflux disease without esophagitis; D64.9 Anemia, unspecified; E78.2 Mixed hyperlipidemia; I10 Essential (primary) hypertension; G89.4 Chronic pain syndrome; R53.82 Chronic fatigue, unspecified; G47.33 Obstructive sleep apnea (adult) (pediatric); Z87.891 Personal history of nicotine dependence; Z79.899 Other long term (current) drug therapy; Z79.1 Long term (current) use of non-steroidal anti-inflammatories (NSAID); Z79.891 Long term (current) use of opiate analgesic
CPT/HCPCS: 43239; 45385; 88305 ×2; 93005; 93010; J2250; J2704; J3490; 813

== ENCOUNTER → 2018-12-17 | Outpatient (CLI) | payer MEDICARE, OTHER ==
--- NOTE | 2018-12-17 12:05 | RADIOLOGY REPORT (SQ) ---
EXAM DESCRIPTION: SHOULDER RIGHT 2 OR MORE VIEWS COMPLETED DATE/TIME: 12/17/2018 11:54 am REASON FOR STUDY: PAIN IN RIGHT SHOULDER M25.511 PAIN IN RIGHT SHOULDER COMPARISON: None. NUMBER OF VIEWS: Three views. TECHNIQUE: Internal rotation, external rotation, and Y view images acquired of the right shoulder. LIMITATIONS: None. FINDINGS: MINERALIZATION: Normal. BONES: No acute fracture or dislocation. No worrisome bone lesions. JOINTS: Postsurgical changes with anchors in the humeral head. VISUALIZED LUNGS AND RIBS: No pneumothorax. No rib fracture. SOFT TISSUES: No radiopaque foreign body. OTHER: No other significant finding. IMPRESSION: Postsurgical changes. No acute findings. TECHNICAL DOCUMENTATION: JOB ID: [id number] [employer]- All Rights Reserved Reading location - IP/workstation name: [email or web address]
== END ==
LOC: OD 11:46
PROVIDERS: ATTEND Family Medicine
DX: M25.511 Pain in right shoulder (principal)

== ENCOUNTER → 2019-02-03 | Day surgery (SDC) | payer OTHER, MEDICARE ==
[~2019-02-03] MED LIST changes: -LIDOCAINE 2% INJ-PF (20 MG/ML) 10 ML AMPUL ONE; +LIDOCAINE 2% JELLY 5 ML TUBE ONE; -MIDAZOLAM 2 MG/2 ML INJ ONE; -PROPOFOL INJ 200 MG/20 ML VIAL IV ONE
== END ==
LOC: END 13:09
PROVIDERS: ATTEND Internal Medicine Gastroenterology
DX: K21.9 Gastro-esophageal reflux disease without esophagitis (principal)
CPT/HCPCS: 91010

== ENCOUNTER → 2019-03-07 | Day surgery (SDC) | payer OTHER, MEDICARE | LOC: END 07:35 | PROVIDERS: ATTEND Internal Medicine Gastroenterology | DX: K21.9 Gastro-esophageal reflux disease without esophagitis (principal) | CPT/HCPCS: 91034 ==

== ENCOUNTER → 2019-04-18 | Outpatient (CLI) | payer MEDICARE, OTHER ==
--- NOTE | 2019-04-18 12:11 | RADIOLOGY REPORT (SQ) ---
EXAM DESCRIPTION: FINGERS LEFT COMPLETED DATE/TIME: 04/18/2019 11:51 am REASON FOR STUDY: PAIN IN LEFT HAND M79.642 PAIN IN LEFT HAND M79.642 PAIN IN LEFT HAND M79.642 P AIN IN LEFT HAND COMPARISON: None. NUMBER OF VIEWS: Three views. TECHNIQUE: AP, lateral, and oblique images acquired of the left second finger. LIMITATIONS: None. FINDINGS: MINERALIZATION: Normal. BONES: No acute fracture or dislocation. No worrisome bone lesions. Surgical changes in the 3rd metac arpal and distal radius. Previous fusion in the wrist with hardware. JOINTS: No erosions. No mitra-articular osteopenia. No chondrocalcinosis. SOFT TISSUES: No swelling. No calcifications. OTHER: No other significant finding. IMPRESSION: NEGATIVE RADIOGRAPHS OF THE LEFT SECOND FINGER. NO EXPLANATION FOR PAIN. TECHNICAL DOCUMENTATION: JOB ID: [id number] [employer]- All Rights Reserved Reading location - IP/workstation name: [email or web address]
[2019-04-18 12:52] LABS: URIC ACID 4.7 mg/dL (3.5-8.5)
[2019-04-18 12:55] LABS: C-REACTIVE PROTEIN < 5.0 mg/L (<10.0)
== END ==
LOC: OD 11:24
PROVIDERS: ATTEND Nurse Practitioner Acute Care
DX: M79.642 Pain in left hand (principal)
CPT/HCPCS: 36415; 84550; 86140; 86430

== ENCOUNTER → 2019-05-04 | Outpatient (CLI) | payer MEDICARE, OTHER ==
[2019-05-04 10:57] LABS: ABSOLUTE EOSINOPHILS # (AUTO) 0.1 10^3/uL (0.0-0.6); ABSOLUTE LYMPHOCYTES (AUTO) 1.2 10^3/uL (0.5-4.7); ABSOLUTE MONOCYTES (AUTO) 0.7 10^3/uL (0.1-1.4); ABSOLUTE NEUT (AUTO) 3.5 10^3/uL (1.7-8.2); BASOPHILS % (AUTO) 0.8 % (0-2); EOSINOPHILS % (AUTO) 2.3 % (0-6); HEMATOCRIT 40.4 % (37.9-51.0); HEMOGLOBIN 13.9 g/dL (13.5-17.0); LYMPHOCYTES % (AUTO) 22.1 % (13-45); MEAN CORPUSCULAR HEMOGLOBIN 30.4 pg (27.0-33.4); MEAN CORPUSCULAR HGB CONC 34.4 g/dL (32.0-36.0); MEAN CORPUSCULAR VOLUME 88 fl (80-97); MONOCYTES % (AUTO) 12.1 % (3-13); PLATELET COUNT 171 10^3/uL (150-450); RED BLOOD COUNT 4.58 10^6/uL (4.35-5.55); RED CELL DISTRIBUTION WIDTH 13.3 % (11.5-14.0); SEGMENTED NEUTROPHILS % (AUTO) 62.7 % (42-78); TOTAL CELLS COUNTED % (AUTO) 100 %; WHITE BLOOD COUNT 5.5 10^3/uL (4.0-10.5)
[2019-05-04 10:58] LABS: APPEARANCE,URINE CLEAR; BILIRUBIN,URINE NEGATIVE (NEGATIVE); COLOR,URINE YELLOW; GLUCOSE, URINE NEGATIVE (NEGATIVE); KETONES,URINE NEGATIVE (NEGATIVE); LEUKOCYTE ESTERASE,URINE NEGATIVE (NEGATIVE); NITRITE,URINE NEGATIVE (NEGATIVE); PROTEIN,URINE NEGATIVE (NEGATIVE); URINE SPECIFIC GRAVITY 1.029
[2019-05-04 11:02] LABS: INTERNATIONAL RATION (INR) 0.98
[2019-05-04 11:03] LABS: PARTIAL THROMBOPLASTIN TIME 30.6 SEC (23.5-35.8)
== END ==
LOC: OD 09:52
PROVIDERS: ATTEND Pain Medicine Interventional Pain Medicine
DX: D68.9 Coagulation defect, unspecified (principal)
CPT/HCPCS: 36415; 81001; 85025; 85610; 85730

== ENCOUNTER → 2019-05-04 | Outpatient (CLI) | payer MEDICARE, OTHER ==
--- NOTE | 2019-05-04 14:34 | RADIOLOGY REPORT (SQ) ---
EXAM DESCRIPTION: BARIUM SWALLOW ESOPHAGUS COMPLETED DATE/TIME: 05/04/2019 9:43 am REASON FOR STUDY: K21.9 GASTRO-ESOPHAGEAL REFLUX DISEASE WITHOUT ESOPHAGITIS K21.9 GASTRO-ESOPHAGEA L REFLUX DISEASE WITHOUT ESOPHAGITIS K44.9 DIAPHRAGMATIC HERNIA WITHOUT OBSTRUCTION OR GANGRENE COMPARISON: None. TECHNIQUE: Under fluoroscopic guidance, patient ingested effervescent granules followed by thick and thin barium. Fluoroscopic spot images and routine radiographic images acquired and stored on PACS. 12 MM BARIUM TABLET GIVEN: Tablet passed easily through the esophagus and into the stomach without de lay. LIMITATIONS: None. FLUOROSCOPY TIME: FLUORO TIME: 1 minutes 9 images saved to PACS. FINDINGS: NEUROMUSCULAR COORDINATION OF SWALLOW: Normal. No aspiration. ESOPHAGEAL MOTILITY: Normal peristalsis. No esophageal spasm. ESOPHAGEAL MUCOSA: Normal mucosa without masses or ulceration. GASTRO-ESOPHAGEAL JUNCTION: Moderately sized hiatal hernia. Significant gastroesophageal reflux to t he level of the clavicles. NON-GI TRACT STRUCTURES: No significant finding. OTHER: No other significant finding. IMPRESSION: MODERATELY SIZED HIATAL HERNIA WITH SIGNIFICANT GASTROESOPHAGEAL REFLUX. OTHERWISE UNRE MARKABLE STUDY. RECOMMENDATION: None COMMENT: None Quality ID [id number]: Final reports for procedures using fluoroscopy that document radiation exposure melody kale, or exposure time and number of fluorographic images (if radiation exposure indices are not avail able) TECHNICAL DOCUMENTATION: JOB ID: [id number] [employer]- All Rights Reserved Reading location - IP/workstation name: [email or web address] [id number]
== END ==
LOC: RAD 11:27
PROVIDERS: ATTEND Surgery
DX: K21.9 Gastro-esophageal reflux disease without esophagitis (principal); K44.9 Diaphragmatic hernia without obstruction or gangrene
CPT/HCPCS: 74220

== ENCOUNTER 2019-06-20 05:40 | Observation (INO) | payer OTHER, MEDICARE ==
[2019-05-27 09:30] LABS: HEMATOCRIT 40.7 % (37.9-51.0); HEMOGLOBIN 13.9 g/dL (13.5-17.0); MEAN CORPUSCULAR HGB CONC 34.1 g/dL (32.0-36.0); MEAN CORPUSCULAR VOLUME 88 fl (80-97); PLATELET COUNT 171 10^3/uL (150-450); RED BLOOD COUNT 4.64 10^6/uL (4.35-5.55); RED CELL DISTRIBUTION WIDTH 13.1 % (11.5-14.0); WHITE BLOOD COUNT 4.8 10^3/uL (4.0-10.5)
[2019-05-27 09:56] LABS: ANION GAP 7 (5-19); BLOOD UREA NITROGEN 25 mg/dL (7-20); CALCIUM 8.7 mg/dL (8.4-10.2); CARBON DIOXIDE 28 mmol/L (22-30); CHLORIDE 103 mmol/L (98-107); GLUCOSE 101 mg/dL (75-110); POTASSIUM 4.5 mmol/L (3.6-5.0)
--- NOTE | 2019-05-27 10:30 | RADIOLOGY REPORT (SQ) ---
EXAM DESCRIPTION: CHEST PA/LATERAL COMPLETED DATE/TIME: 05/27/2019 10:09 am REASON FOR STUDY: PREOP COMPARISON: 07/04/2015 EXAM PARAMETERS: NUMBER OF VIEWS: two views TECHNIQUE: Digital Frontal and Lateral radiographic views of the chest acquired. RADIATION DOSE: NA LIMITATIONS: none FINDINGS: LUNGS AND PLEURA: No opacities, masses or pneumothorax. No pleural effusion. Mild biapica l pleural scarring. MEDIASTINUM AND HILAR STRUCTURES: No masses or contour abnormalities. HEART AND VASCULAR STRUCTURES: Heart normal size. No evidence for failure. BONES: No acute findings. HARDWARE: Spinal stimulator device overlies lower thoracic spine. Partially visualized cervical post erior and anterior fusion hardware. OTHER: No other significant finding. IMPRESSION: No evidence of acute cardiopulmonary process. TECHNICAL DOCUMENTATION: JOB ID: [id number] [employer]- All Rights Reserved Reading location - IP/workstation name: [email or web address]
--- NOTE | 2019-05-27 18:08 | EKG REPORT ---
SEVERITY:- ABNORMAL ECG - SINUS BRADYCARDIA BORDERLINE LEFT AXIS DEVIATION ABNORMAL T, CONSIDER ISCHEMIA, INFERIOR LEADS : Confirmed by: Jeffrey Graham MD 27-May-2019 18:07:56
[~2019-06-20 05:40] MED LIST changes: +ACETAMINOPHEN 325 MG TABLET PO PRN; +CEFAZOLIN SODIUM 2 GM in DEXTROSE 5%-WATER 100 ML IV PRN; +IBUPROFEN 800 MG in NORMAL SALINE 250 ML IV PRN; +LACTATED RINGERS 1000 ML IV PRN; +LIDOCAINE 0.5% INJ-PF (5 MG/ML) 50 ML SDV SUBCUT PRN; -LIDOCAINE 2% JELLY 5 ML TUBE ONE
[2019-06-20] MEDS ORDERED: ACETAMINOPHEN 325 MG TABLET ONE (06:06)
[2019-06-20] MEDS ORDERED: PREGABALIN 50 MG CAPSULE ONE (06:06)
[2019-06-20] MEDS: PREGABALIN 50 MG CAPSULE PO PRN ×2 (06:23→22:38)
[2019-06-20] MEDS ORDERED: FENTANYL CITRATE INJ/PF 250 MCG/5 ML AMPULE ONE (06:27)
[2019-06-20] MEDS ORDERED: FENTANYL CITRATE INJ/PF 100 MCG/2 ML AMPUL ONE (06:27)
[2019-06-20] MEDS ORDERED: DEXAMETHASONE SOD PHOSPHATE INJ 4 MG/1 ML VIAL ONE (06:28)
[2019-06-20] MEDS ORDERED: MIDAZOLAM 2 MG/2 ML INJ ONE (06:28)
[2019-06-20] MEDS ORDERED: SUGAMMADEX SODIUM 200 MG/2 ML SDV IV ONE (06:28)
[2019-06-20] MEDS ORDERED: PROPOFOL INJ 200 MG/20 ML VIAL IV ONE (06:28)
[2019-06-20] MEDS ORDERED: ONDANSETRON HCL INJ/PF 4 MG/2 ML SDV ONE (06:28)
[2019-06-20] MEDS ORDERED: LIDOCAINE 0.5% INJ-PF (5 MG/ML) 50 ML SDV ONE (06:30)
[2019-06-20] MEDS ORDERED: BUPIVACAINE HCL 0.25 % INJ/PF (2.5 MG/1 ML) 30 ML VIAL ONE (07:20)
[2019-06-20] MEDS ORDERED: MEPERIDINE HCL/PF INJ 25 MG/1 ML DISP.SYRIN IV PRN (08:28)
[2019-06-20] MEDS ORDERED: PROMETHAZINE HCL INJ 25 MG/1 ML VIAL IV PRN ×2 (08:28)
[2019-06-20] MEDS ORDERED: FENTANYL CITRATE INJ/PF 100 MCG/2 ML AMPUL IV PRN ×3 (08:28)
[2019-06-20] MEDS ORDERED: DIPHENHYDRAMINE HCL 50 MG/ML VIAL IV PRN (08:28)
[2019-06-20] MEDS ORDERED: MORPHINE SULFATE 10 MG/ML INJ IV PRN (08:28)
[2019-06-20] MEDS ORDERED: ONDANSETRON HCL INJ/PF 4 MG/2 ML SDV IV PRN ×2 (08:28→10:41)
[2019-06-20] MEDS ORDERED: EPHEDRINE SULFATE INJ 50 MG/1 ML AMPULE ONE (10:39)
[2019-06-20] MEDS: FENTANYL CITRATE INJ/PF 100 MCG/2 ML AMPUL ONE ×2 (10:59→11:04)
[2019-06-20] MEDS: HYDROMORPHONE HCL INJ/PF 2 MG/ML AMPULE IV PRN ×3 (12:40→22:41)
[2019-06-20] MEDS ORDERED: ROCURONIUM BROMIDE INJ 50 MG/5 ML VIAL IV ONE (13:12)
[2019-06-20] MEDS ORDERED: SUCCINYLCHOLINE CHLORIDE INJ 200 MG/10 ML VIAL ONE (13:12)
[2019-06-20] MEDS: HYDROCOD/ACETAMIN 7.5-325 MG/15 ML ORAL SOLN UDCUP PO PRN (22:38)
[2019-06-21] MEDS: HYDROMORPHONE HCL INJ/PF 2 MG/ML AMPULE IV PRN ×5 (03:17→19:58)
[2019-06-21] MEDS: HYDROCOD/ACETAMIN 7.5-325 MG/15 ML ORAL SOLN UDCUP PO PRN (03:20)
[2019-06-21 05:42] LABS: ABSOLUTE NEUT (AUTO) 5.8 10^3/uL (1.7-8.2); BASOPHILS % (AUTO) 0.2 % (0-2); EOSINOPHILS % (AUTO) 0.4 % (0-6); HEMATOCRIT 38.5 % (37.9-51.0); HEMOGLOBIN 13.1 g/dL (13.5-17.0); LYMPHOCYTES % (AUTO) 13.2 % (13-45); MEAN CORPUSCULAR HEMOGLOBIN 30.1 pg (27.0-33.4); MEAN CORPUSCULAR VOLUME 89 fl (80-97); MONOCYTES % (AUTO) 12.8 % (3-13); PLATELET COUNT 130 10^3/uL (150-450); RED BLOOD COUNT 4.33 10^6/uL (4.35-5.55); SEGMENTED NEUTROPHILS % (AUTO) 73.4 % (42-78); TOTAL CELLS COUNTED % (AUTO) 100 %; WHITE BLOOD COUNT 7.9 10^3/uL (4.0-10.5)
[2019-06-21 05:53] LABS: ANION GAP 6 (5-19); BLOOD UREA NITROGEN 16 mg/dL (7-20); CALCIUM 8.1 mg/dL (8.4-10.2); CARBON DIOXIDE 29 mmol/L (22-30); CHLORIDE 104 mmol/L (98-107); GLUCOSE 90 mg/dL (75-110); POTASSIUM 3.7 mmol/L (3.6-5.0)
--- NOTE | 2019-06-21 07:16 | Operative Report ---
Nonrecallable Operative Report DATE OF SURGERY: 06/20/19 PREOPERATIVE DIAGNOSIS: Hiatal hernia and reflux POSTOPERATIVE DIAGNOSIS: Same as above OPERATION: 1. Robot-assisted laparoscopic hiatal hernia repair. 2. Robot- assisted laparoscopic Mio fundoplication. 3. EGD. SURGEON: ROB GARDNER EXPORT SALES ASSISTANT: AIYANA PELAYO ANESTHESIA: GA TISSUE REMOVED OR ALTERED: None COMPLICATIONS: None apparent ESTIMATED BLOOD LOSS: Minimal PROCEDURE: Drains/implants: None. Procedure in detail: After informed consent was obtained, the patient was brought to the operating room and laid in the supine position. The area of the abdomen was prepped and draped in a normal sterile fashion. An incision was created superior and to the left of the umbilicus. Dissection was carried through the subcutaneous tissues using sharp dissection and blunt dissection. The anterior sheath was incised sharply, the rectus muscle was spread, the posterior sheath was incised sharply, the abdomen was then entered. The balloon trocar was inserted, and pneumoperitoneum was achieved. A left upper quadrant 8 mm robotic trocar as well as a left lateral 8 mm robotic trocar were then placed under direct laparoscopic visualization. A right upper quadrant 8 mm robotic trocar was placed in similar fashion. A 5 mm right lateral abdominal trocar was placed to facilitate the placement of the liver retractor. The robot was brought over the patient and docked appropriately. I then assumed my position at the surgeon's console After the robot was docked, attention was turned to the pars flaccida. The pars flaccida was divided using electrocautery. The medial portion of the dissection was then undertaken. The right kady of the diaphragm was identified. It was cleaned using both electrocautery and blunt dissection. The hernia sac was then reduced. The hernia appeared to be small in size. The dissection was carried posteriorly to the left kady, and laterally, freeing the posterior stomach from the left kady. Next attention was turned to division of the short gastric arteries. The vessel sealing device was used to divide the short gastric arteries immediately adjacent to the fundus of the stomach. This was done up to the left kady. After this was completed, the lateral and medial dissections were met. Attention was then turned to completion of the anterior dissection. Using electrocautery the anterior dissection was completed. This was done with great care, so as not to injure the vagus nerves. Once the hiatal hernia was dissected circumferentially, a Giancarlo drain was placed posterior to the esophagus to facilitate retraction. Approximately 3 cm of intra-abdominal eso phagus was ensured. Once this was completed, a 58 Greenlandic bougie was placed into the esophagus by me. It slid easily into the esophagus, without any resistance. With the [address], the posterior crural repair was performed. 2-0 Ethibond suture was used in xbilee-[id number] fashion to reapproximate the crura. 2 separate sutures were used. Once the crural repair was completed, the fundus was wrapped posteriorly around the esophagus. It was sutured to the esophagus using 2-0 Ethibond suture. The first suture incorporated a portion of the esophagus. The 3 subsequent sutures approximated fundus to fundus, creating a Mio fundoplication. The bougie was then removed. A gastropexy was then performed. 2-0 Ethibond suture was used to attach the fundoplication to the crura. This was done in several locations, in interrupted fashion. An EGD was then performed. The flexible gastroscope was passed down the esophagus, and into the stomach. The esophagus was smooth in contour without any damage, bleeding, or other abnormality. The scope passed easily through the hiatus and into the stomach. A retroflexion maneuver was performed in the stomach, noting an intact fund oplication. The scope was pulled up into the distal esophagus. Z line appeared to reside at the hiatal repair. The scope was pulled up the esophagus. Again, no evidence of damage to the esophagus was seen. Scope was removed from the oropharynx, and this portion of the procedure was concluded. The robot was then undocked from the patient, and I scrubbed back into the case. The 12 mm trocar was removed. The 12 mm defect was closed using 0 Vicryl suture in hsekox-vt-wotyl fashion using the Trey-Alec device. The liver retractor was removed from the patient. The 5 and 8 mm trochars were removed. The overlying skin was closed using 4-0 Vicryl Rapide suture in subcuticular fashion. Dressings were placed, and the procedure was concluded. All sponge, instrument, and needle counts were correct x2. Condition: Stable. Aiyana Pelayo PA-C was scrubbed and present the entirety the procedure. She assisted with all portions of the procedure including placement of the trochars, docking of the robot, exchanging of the robotic instruments, closure of the fascia, and closure of the skin.
--- NOTE | 2019-06-21 09:00 | RADIOLOGY REPORT (SQ) ---
EXAM DESCRIPTION: CHEST SINGLE VIEW COMPLETED DATE/TIME: 06/21/2019 8:35 am REASON FOR STUDY: pain with inspiration, s/p hiatal hernia repair COMPARISON: None. EXAM PARAMETERS: NUMBER OF VIEWS: One view. TECHNIQUE: Single frontal radiographic view of the chest acquired. RADIATION DOSE: NA LIMITATIONS: None. FINDINGS: LUNGS AND PLEURA: Low lung volumes. Bibasilar slight to mild atelectasis/infiltrate sugg ested. Question of very minimal bilateral pleural effusions. No pneumothorax. MEDIASTINUM AND HILAR STRUCTURES: See discussion below. HEART AND VASCULAR STRUCTURES: Accentuation of the cardiomediastinal structures probably related to the limited degree of inspiration. Normal vasculature. BONES: No acute findings. HARDWARE: Partially visualized hardware anterior fusion, lower cervical-thoracic spine. OTHER: No other significant finding. IMPRESSION: 1. Low lung volumes limits the examination. Bibasilar slight to mild atelectasis/infil trate suggested. Question of very minimal bilateral pleural effusions. TECHNICAL DOCUMENTATION: JOB ID: [id number] [employer]- All Rights Reserved Reading location - IP/workstation name: [email or web address]
[2019-06-21] MEDS: ENOXAPARIN SODIUM INJ 40 MG/0.4 ML DISP.SYRIN SUBCUT SCH (10:23)
[2019-06-21] MEDS: POTASSI CL 10 MEQ/D5-1/2NS 1L 10 MEQ/1,000 ML RTUINJ IV PRN (12:44)
--- NOTE | 2019-06-21 19:17 | PDOC PROGRESS REPORT ---
Subjective Progress Note for:: 06/21/19 Reason For Visit: K21.9 GASTRO-ESOPHAGEAL REFLUX DISEASE WITHOUT ESO Physical Exam Vital Signs: Temp Pulse Resp BP Pulse Ox 97.8 F 71 20 128/71 H 91 L 06/21/19 16:07 06/21/19 16:07 06/21/19 16:07 06/21/19 16:07 06/21/19 16:07 Intake & Output 06/20/19 06/21/19 06/22/19 06:59 06:59 06:59 Intake Total 2400 500 Output Total 1505 Balance 895 500 Weight 93.44 kg 98.7 kg Results Laboratory Results: 06/21/19 03:53 06/21/19 03:53 06/21/19 06/21/19 03:53 03:53 WBC 7.9 RBC 4.33 L Hgb 13.1 L Hct 38.5 MCV 89 MCH 30.1 MCHC 34.0 RDW 14.0 Plt Count 130 L Seg Neutrophils % 73.4 Sodium 139.0 Potassium 3.7 Chloride 104 Carbon Dioxide 29 Anion Gap 6 BUN 16 Creatinine 0.99 Est GFR ( Amer) > 60 Glucose 90 Calcium 8.1 L Impressions: Chest X-Ray 06/21/19 06:00 IMPRESSION: 1. Low lung volumes limits the examination. Bibasilar slight to mild atelectasis/infiltrate suggested. Question of very minimal bilateral pleural effusions. Assessment & Plan - Diagnosis (1) Hiatal hernia with GERD Is this a current diagnosis for this admission?: Yes - Time Time Spent with patient: Less than 15 minutes - Plan Summary Plan Summary: 59-year-old male status post laparoscopic/robotic assisted Mio fundoplication. The patient reported some swallowing difficulty this morning. He reported "spitting up" some of his breakfast. He appears to be swallowing better this evening. He is taking clear liquids without significant difficulty. I will leave him on clear liquids today. Plan to advance him to full liquids tomorrow. The patient may require an esophagram if his swallowing difficulties continue. I will reevaluate him tomorrow. Continue with intravenous pain medication.
[2019-06-22] MEDS: HYDROCOD/ACETAMIN 7.5-325 MG/15 ML ORAL SOLN UDCUP PO PRN ×2 (00:15→05:10)
[2019-06-22] MEDS: HYDROMORPHONE HCL INJ/PF 2 MG/ML AMPULE IV PRN ×3 (02:53→15:55)
[2019-06-22] MEDS: POTASSI CL 10 MEQ/D5-1/2NS 1L 10 MEQ/1,000 ML RTUINJ IV PRN ×2 (02:54→11:28)
[2019-06-22] MEDS: ENOXAPARIN SODIUM INJ 40 MG/0.4 ML DISP.SYRIN SUBCUT SCH (09:52)
[2019-06-22] MEDS ORDERED: OXYCODONE-ACETAMINOPHEN 5-325 MG TABLET PO PRN (10:42)
[2019-06-22] MEDS ORDERED: OXYCODONE-ACETAMINOPHEN 5-325 MG TABLET PO SCH (14:00)
--- NOTE | 2019-06-22 17:43 | PDOC DISCHARGE SUMMARY ---
General - Admit/Disc Date/PCP Admission Date/Primary Care Provider: 06/21/19 16:09 DANNY MCWILLIAMS, Discharge Date: 06/22/19 - Discharge Diagnosis Final Diagnosis: hiatal hernia, reflux - Assessment Summary: 59 y/o M s/p robot assisted lap hiatal hernia repair with mesh. He was taken to the floor in stable condition. The first postoperative day he had some difficulty swallowing, but this subsided over time. He initially required IV pain medication for relief of symptoms, but this greatly improved over the subsequent days. By POD #2 he was ambulating, tolerating a full liquid diet, passing flatus, and his pain was reasonably controlled with oral pain medications. At this time it is felt that he has reached maximal hosptial benefit and is fit for discharge. - Additional Information Resuscitation Status: Full Code Discharge Diet: As Tolerated Discharge Activity: Balance Activity w/Rest, No Lifting Over 10 Pounds, No Lifting/Push/Pulling Referrals: [facility] [Provider Group] - 06/27/19 2:45 pm Home Medications: Atenolol [Tenormin 50 mg Tablet] 50 mg PO DAILY 07/04/15 Bupropion HCl [Bupropion HCl Sr] 150 mg PO QHS 07/04/15 Ibuprofen 1 - 2 tab PO DAILY PRN 07/04/15 Lovastatin 2 tab PO QHS 07/04/15 Sertraline HCl 2 tab PO QHS 07/04/15 Trazodone HCl [Desyrel 50 mg Tablet] 50 mg PO QHS 07/04/15 Hydroxyzine HCl 25 mg PO TID 08/20/16 Hydrocodone Bit/Acetaminophen [Hydrocodon-Acetaminophn 10-325] 1.5 each PO TID PRN 11/19/16 Sildenafil Citrate [Viagra] 100 mg PO ASDIR PRN 11/19/16 Butalb/Acetaminophen/Caffeine [Riiuwxgw-Aoqechkrvqqpr-Hxtd Cp] 1 tab PO PRN PRN 08/06/18 Docusate Sodium [Colace] 1 tab PO BID 08/06/18 Naloxegol Oxalate [Movantik] 25 mg PO QHS 08/06/18 Oxybutynin Chloride [Oxybutynin Chloride ER] 10 mg PO DAILY 08/06/18 Pramipexole Di-HCl [Mirapex] 50 mg PO BID 08/06/18 Tizanidine HCl [Zanaflex] 4 mg PO QHS PRN 08/06/18 Celecoxib [Celebrex 200 mg Capsule] 200 mg PO DAILY 05/27/19 Cetirizine HCl [Allergy Relief] 10 mg PO DAILY 05/27/19 Dexlansoprazole [Dexilant 60 mg Capsule] 60 mg PO DAILY 05/27/19 Hydrocodone Bitartrate [Zohydro ER] 10 mg PO BID 05/27/19 Additional Information: Ultram 100mg PO q4 hours PRN pain. F/u with me in one week at [facility]. History of Present Illiness History of Present Illness: ALEXANDREA URIBE SR is a 59 year old male Physical Exam Vital Signs: Temp Pulse Resp BP Pulse Ox 98.0 F 93 19 134/78 H 93 06/22/19 11:50 06/22/19 11:50 06/22/19 11:50 06/22/19 11:50 06/22/19 11:50 Intake & Output 06/21/19 06/22/19 06/23/19 06:59 06:59 06:59 Intake Total 2400 2690 1680 Output Total 1505 400 Balance 895 2690 1280 Weight 98.7 kg 94 kg Results Laboratory Results: WBC 7.9 10^3/uL (4.0-10.5) 06/21/19 03:53 RBC 4.33 10^6/uL (4.35-5.55) L 06/21/19 03:53 Hgb 13.1 g/dL (13.5-17.0) L 06/21/19 03:53 Hct 38.5 % (37.9-51.0) 06/21/19 03:53 MCV 89 fl (80-97) 06/21/19 03:53 MCH 30.1 pg (27.0-33.4) 06/21/19 03:53 MCHC 34.0 g/dL (32.0-36.0) 06/21/19 03:53 RDW 14.0 % (11.5-14.0) 06/21/19 03:53 Plt Count 130 10^3/uL (150-450) L 06/21/19 03:53 Lymph % (Auto) 13.2 % (13-45) 06/21/19 03:53 [place] % (Auto) 12.8 % (3-13) 06/21/19 03:53 Eos % (Auto) 0.4 % (0-6) 06/21/19 03:53 Baso % (Auto) 0.2 % (0-2) 06/21/19 03:53 Absolute Neuts (auto) 5.8 10^3/uL (1.7-8.2) 06/21/19 03:53 Absolute Lymphs (auto) 1.0 10^3/uL (0.5-4.7) 06/21/19 03:53 Absolute Monos (auto) 1.0 10^3/uL (0.1-1.4) 06/21/19 03:53 Absolute Eos (auto) 0.0 10^3/uL (0.0-0.6) 06/21/19 03:53 Absolute Basos (auto) 0.0 10^3/uL (0.0-0.2) 06/21/19 03:53 Seg Neutrophils % 73.4 % (42-78) 06/21/19 03:53 Sodium 139.0 mmol/L (137-145) 06/21/19 03:53 Potassium 3.7 mmol/L (3.6-5.0) 06/21/19 03:53 Chloride 104 mmol/L (98-107) 06/21/19 03:53 Carbon Dioxide 29 mmol/L (22-30) 06/21/19 03:53 Anion Gap 6 (5-19) 06/21/19 03:53 BUN 16 mg/dL (7-20) 06/21/19 03:53 Creatinine 0.99 mg/dL (0.52-1.25) 06/21/19 03:53 Est GFR ( Amer) > 60 (>60) 06/21/19 03:53 Est GFR (MDRD) Non-Af > 60 (>60) 06/21/19 03:53 Glucose 90 mg/dL (75-110) 06/21/19 03:53 Calcium 8.1 mg/dL (8.4-10.2) L 06/21/19 03:53 Impressions: Chest X-Ray 05/27/19 00:00 IMPRESSION: No evidence of acute cardiopulmonary process. Chest X-Ray 06/21/19 06:00 IMPRESSION: 1. Low lung volumes limits the examination. Bibasilar slight to mild atelectasis/infiltrate suggested. Question of very minimal bilateral pleural effusions.
[2019-06-22 18:35] VITALS: BP 132/60
== END 2019-06-22 18:48 | disposition home or self-care (01) ==
LOC: OROUT 05:40 → 4N 12:00 → OROUT 06-21 16:08 → 4N 06-21 16:09
PROVIDERS: ADMIT Surgery; ATTEND Surgery
DX: K44.9 Diaphragmatic hernia without obstruction or gangrene (principal); K21.9 Gastro-esophageal reflux disease without esophagitis; R13.10 Dysphagia, unspecified; I10 Essential (primary) hypertension; G47.30 Sleep apnea, unspecified; G89.29 Other chronic pain; M54.9 Dorsalgia, unspecified; M19.90 Unspecified osteoarthritis, unspecified site; M43.22 Fusion of spine, cervical region; Z79.899 Other long term (current) drug therapy; Z96.89 Presence of other specified functional implants; Z87.891 Personal history of nicotine dependence; Z79.891 Long term (current) use of opiate analgesic
CPT/HCPCS: 43281; S2900; 36415; 71046; 790; 80048; 85025; 85027; 93005; 93010; G0378; J0330; J0690; J1100; J1170; J1741; J2250; J2405; J2704; J3010; J3480; J3490; J7050; J7060

== ENCOUNTER 2019-07-12 06:00 | Day surgery (SDC) | payer MEDICARE, OTHER ==
[2019-07-05 10:32] LABS: HEMATOCRIT 39.9 % (37.9-51.0); HEMOGLOBIN 13.8 g/dL (13.5-17.0); MEAN CORPUSCULAR HEMOGLOBIN 30.3 pg (27.0-33.4); MEAN CORPUSCULAR HGB CONC 34.5 g/dL (32.0-36.0); MEAN CORPUSCULAR VOLUME 88 fl (80-97); PLATELET COUNT 312 10^3/uL (150-450); RED BLOOD COUNT 4.55 10^6/uL (4.35-5.55); RED CELL DISTRIBUTION WIDTH 13.7 % (11.5-14.0); WHITE BLOOD COUNT 8.5 10^3/uL (4.0-10.5)
[2019-07-05 10:34] LABS: INTERNATIONAL RATION (INR) 1.05; PROTHROMBIN TIME 13.7 SEC (11.4-15.4)
[2019-07-05 10:44] LABS: APPEARANCE,URINE CLEAR; BILIRUBIN,URINE NEGATIVE (NEGATIVE); CALCIUM OXALATE CRYSTALS,URINE FEW /HPF; COLOR,URINE YELLOW; GLUCOSE, URINE NEGATIVE (NEGATIVE); KETONES,URINE NEGATIVE (NEGATIVE); LEUKOCYTE ESTERASE,URINE NEGATIVE (NEGATIVE); NITRITE,URINE NEGATIVE (NEGATIVE); PROTEIN,URINE NEGATIVE (NEGATIVE); URINE SPECIFIC GRAVITY 1.026; UROBILINOGEN,URINE NEGATIVE mg/dL (<2.0)
[~2019-07-12 06:00] MED LIST changes: -ACETAMINOPHEN 325 MG TABLET PO PRN; +CEFAZOLIN SODIUM 1 GM in DEXTROSE 5%-WATER 50 ML IV PRN; -CEFAZOLIN SODIUM 2 GM in DEXTROSE 5%-WATER 100 ML IV PRN; -IBUPROFEN 800 MG in NORMAL SALINE 250 ML IV PRN
[2019-07-12] MEDS ORDERED: MIDAZOLAM 2 MG/2 ML INJ ONE ×2 (07:00→09:02)
[2019-07-12] MEDS ORDERED: FENTANYL CITRATE INJ/PF 100 MCG/2 ML AMPUL ONE (07:00)
[2019-07-12] MEDS ORDERED: DEXMEDETOMIDINE INJ 80 MCG/20 ML VIAL IV ONE (07:00)
[2019-07-12] MEDS ORDERED: ONDANSETRON HCL INJ/PF 4 MG/2 ML SDV ONE (07:00)
[2019-07-12] MEDS ORDERED: PROPOFOL INJ 200 MG/20 ML VIAL IV ONE ×2 (07:00→10:48)
[2019-07-12] MEDS ORDERED: LIDOCAINE 2% INJ (20 MG/ML) 20 ML MDV ONE (07:03)
[2019-07-12] MEDS ORDERED: LIDOCAINE 1% INJ-PF (10 MG/ML) 30 ML SDV ONE (07:44)
[2019-07-12] MEDS ORDERED: SODIUM BICARBONATE 4.2% INJ (2.5 MEQ/5 ML) VIAL ONE ×2 (07:44→08:34)
[2019-07-12] MEDS ORDERED: BUPIVACAINE HCL 0.5 % INJ/PF 30 ML SDV ONE (07:48)
[2019-07-12] MEDS ORDERED: BUPIVACAINE HCL 0.25 % INJ/PF (2.5 MG/1 ML) 30 ML VIAL ONE ×2 (07:48→10:23)
[2019-07-12] MEDS ORDERED: LIDOCAINE 1%/EPINEPHRINE INJ 20 ML VIAL ONE ×2 (07:48→08:45)
[2019-07-12] MEDS ORDERED: KETAMINE HCL INJ 500 MG/10 ML VIAL ONE (07:56)
[2019-07-12] MEDS ORDERED: LIDOCAINE 1% INJ-PF (10 MG/ML) 30 ML SDV INJ ONE (08:41)
[2019-07-12] MEDS ORDERED: FENTANYL CITRATE INJ/PF 100 MCG/2 ML AMPUL IV PRN ×3 (08:42)
[2019-07-12] MEDS ORDERED: OXYCODONE-ACETAMINOPHEN 5-325 MG TABLET PO PRN ×2 (08:42)
[2019-07-12] MEDS ORDERED: PROMETHAZINE HCL INJ 25 MG/1 ML VIAL IV PRN (08:42)
[2019-07-12] MEDS ORDERED: MORPHINE SULFATE 10 MG/ML INJ IV PRN (08:42)
[2019-07-12] MEDS ORDERED: DIPHENHYDRAMINE HCL 50 MG/ML VIAL IV PRN (08:42)
[2019-07-12] MEDS ORDERED: MEPERIDINE HCL/PF INJ 25 MG/1 ML DISP.SYRIN IV PRN (08:42)
--- NOTE | 2019-07-12 10:38 | RADIOLOGY REPORT (SQ) ---
EXAM DESCRIPTION: CERV SP 3 VIEW OR LESS; NO CHG FLUORO COMPLETED DATE/TIME: 07/12/2019 10:22 am REASON FOR STUDY: CERVICAL STIMULATOR M54.12 RADICULOPATHY, CERVICAL REGION G89.4 CHRONIC PAIN SYN DROME M96.1 POSTLAMINECTOMY SYNDROME, NOT ELSEWHERE CLASSIFIED COMPARISON: None. FLUOROSCOPY TIME: 9.1 minutes Spot images saved to PACS. TECHNIQUE: Intra-operative images acquired during surgical procedure to evaluate progress. NUMBER OF IMAGES: 42 LIMITATIONS: None. FINDINGS: Fluoroscopy was provided for intraoperative procedure. Please refer to the operative repo rt for further discussion. IMPRESSION: IMAGE(S) OBTAINED DURING PROCEDURE. COMMENT: Quality ID [id number]: Final reports for procedures using fluoroscopy that document radiation exp osure indices, or exposure time and number of fluorographic images (if radiation exposure indices are not available) Please consult full operative report of the attending physician for description of the procedure. TECHNICAL DOCUMENTATION: JOB ID: [id number] [employer]- All Rights Reserved Reading location - IP/workstation name: [email or web address]
--- NOTE | 2019-07-12 10:38 | RADIOLOGY REPORT (SQ) ---
EXAM DESCRIPTION: CERV SP 3 VIEW OR LESS; NO CHG FLUORO COMPLETED DATE/TIME: 07/12/2019 10:22 am REASON FOR STUDY: CERVICAL STIMULATOR M54.12 RADICULOPATHY, CERVICAL REGION G89.4 CHRONIC PAIN SYN DROME M96.1 POSTLAMINECTOMY SYNDROME, NOT ELSEWHERE CLASSIFIED COMPARISON: None. FLUOROSCOPY TIME: 9.1 minutes Spot images saved to PACS. TECHNIQUE: Intra-operative images acquired during surgical procedure to evaluate progress. NUMBER OF IMAGES: 42 LIMITATIONS: None. FINDINGS: Fluoroscopy was provided for intraoperative procedure. Please refer to the operative repo rt for further discussion. IMPRESSION: IMAGE(S) OBTAINED DURING PROCEDURE. COMMENT: Quality ID [id number]: Final reports for procedures using fluoroscopy that document radiation exp osure indices, or exposure time and number of fluorographic images (if radiation exposure indices are not available) Please consult full operative report of the attending physician for description of the procedure. TECHNICAL DOCUMENTATION: JOB ID: [id number] [employer]- All Rights Reserved Reading location - IP/workstation name: [email or web address]
--- NOTE | 2019-07-12 10:39 | Operative Report ---
Operative Report DATE OF SURGERY: 07/12/19 PREOPERATIVE DIAGNOSIS: Postlaminectomy pain syndrome cervical region. Cervical radiculitis POSTOPERATIVE DIAGNOSIS: same OPERATION: 1. Implantation of dual octrode spinal cord stimulator leads, cervical. 2. Implantation of pulse generator. 3. Programming of Spinal cord stimulator device SURGEON: ELDA ARZATE 1ST SNOWBOARD INSTRUCTOR: PB POSEY ANESTHESIA: LMAC TISSUE REMOVED OR ALTERED: none COMPLICATIONS: none ESTIMATED BLOOD LOSS: 10mL INTRAOPERATIVE FINDINGS: Dual octrode leads from C2 to C5 bilaterally PROCEDURE: Date of Surgery: 07/12/2019 Preoperative Diagnosis: Post Laminectomy Pain Syndrome, Cervical Region Postoperative Diagnosis:Same Procedure: SCS Electrode Placement with Impulse Generator Surgeon: Elda Arzate MD Adzing And Boring Machine Feeder: Dr. Pb Posey Anesthesia: MAC Complications: None Procedure Detail: After obtaining informed consent and advising the patient of the risks and benefits, including serious neurological injury, bleeding and infection, allergic reaction and , the patient was taken to the operating room. After discussion with the patient, a suitable site was marked for the impulse generator pocket. The patient was then placed comfortably in the prone position. Comfort was assessed visually and verbally. The patient was then prepped with chlorhexidine with a suitable drying time prior to draping. The patient was evaluated under fluoroscopy in the AP view. An adequate space was found at T6/7 and a midline incision site was marked to allow needle entry. The skin overlying both the midline and IPG sites were anesthetized with 1% lidocaine with bicarbonate, followed by bupivacaine 0.25% Beginning at the midline incision, Sharp and blunt dissection were performed down to the underlying fascia. Using a left paramedian approach, a 14 gauge Tuohy needle was placed in the epidural space at T6/7 using a loss or resistance to saline technique. A second needle using a right paramedian approach was placed in the epidural space in the same manner. An electrode was inserted through each needle and advanced under serial fluoroscopy views to the top of C2 on the right and left. After placement, lateral imaging was obtained for appropriate posterior position in the epidural space. The leads were then secured using pursetrings with anchors in place using 0- mersiline suture. The anchors were then sututred in place. The needles were remove sequentially under fluoroscopic guidance. The anchors and pursestrings were secured. While lead positioning was occurring, Dr Barrientos was assisting creating the pocket for the pulse generator. As soon as the pocket was made, proper hemostasi s was confirmed. The skin between the midline and IPG pocket was then anesthetized with 1% lidocaine. A tunneling tool was then utilized to bring the midline electrodes to the IPG pocket. Both sites were then inspected with appropriate hemostasis. The wires were easily placed in the midline, stitched to the pocket, connected to the pulse generator which was then tested with appropriate communication. All connections were then secured and confirmed. The generator was connected to the electrodes. All hex nuts were secured. The generator was placed in the pocket and impedance was tested and was felt to be satisfactory. Good connectivity with the new generator was obtained. The wounds were then copiously irrigated with Betadine containing irrigation solution. The sites were then closed with interrupted vertical mattress sutures with 3-0 Polysorb. The skin came together nicely. Single layer suture closure was utilized in the battery pocket incision. The midline was closed in 2 layers. The region was cleansed again followed by placement of dermabond tape and cement. When this was dry, suitable tegaderm sponge dressings were placed. The patient was then taken back to PACU for postoperative care and monitoring.
[2019-07-12] MEDS ORDERED: HYDROCODONE/ACETAMINOPHEN 5-325 MG TABLET PO PRN (10:55)
[2019-07-12] MEDS ORDERED: ONDANSETRON HCL INJ/PF 4 MG/2 ML SDV IV PRN (10:56)
[2019-07-12] MEDS ORDERED: CEFAZOLIN INJ 1 GM VIAL ONE (11:37)
[2019-07-12 12:49] VITALS: BP 110/55
== END 2019-07-12 12:15 | disposition home or self-care (01) ==
LOC: OROUT 06:00
PROVIDERS: ATTEND Pain Medicine Interventional Pain Medicine
DX: M54.12 Radiculopathy, cervical region (principal); G89.4 Chronic pain syndrome; M96.1 Postlaminectomy syndrome, not elsewhere classified; Z79.899 Other long term (current) drug therapy; E78.00 Pure hypercholesterolemia, unspecified; I10 Essential (primary) hypertension; Z87.891 Personal history of nicotine dependence; M46.1 Sacroiliitis, not elsewhere classified; M51.36 Other intervertebral disc degeneration, lumbar region; M54.17 Radiculopathy, lumbosacral region; M51.37 Other intervertebral disc degeneration, lumbosacral region; M54.16 Radiculopathy, lumbar region; M47.817 Spondylosis without myelopathy or radiculopathy, lumbosacral region; F45.42 Pain disorder with related psychological factors; Z51.81 Encounter for therapeutic drug level monitoring
CPT/HCPCS: 36415; 85027; 85610; 85730; 81001; 72040; 00600; 63685; 63650; J2250; J3490 ×5; J0690; J3010; J2405; J7060; J2704; 600

== ENCOUNTER 2019-09-13 06:02 | Day surgery (SDC) | payer OTHER, MEDICARE ==
[~2019-09-13 06:02] MED LIST changes: +CEFAZOLIN 1 GM/D5W RTU 1 GM/50 ML RTUPB IV ONE; +CEFAZOLIN 1 GM/D5W RTU 1 GM/50 ML RTUPB IV PRN; -CEFAZOLIN SODIUM 1 GM in DEXTROSE 5%-WATER 50 ML IV PRN
[2019-09-13] MEDS ORDERED: PROPOFOL INJ 200 MG/20 ML VIAL IV ONE (07:39)
[2019-09-13] MEDS ORDERED: FENTANYL CITRATE INJ/PF 100 MCG/2 ML AMPUL ONE (07:39)
[2019-09-13] MEDS ORDERED: MIDAZOLAM 2 MG/2 ML INJ ONE (07:40)
[2019-09-13] MEDS ORDERED: SODIUM BICARBONATE 4.2% INJ (2.5 MEQ/5 ML) VIAL ONE (07:50)
[2019-09-13] MEDS ORDERED: BUPIVACAINE HCL 0.5%-EPI 1:200000 INJ/PF 30 ML VIAL ONE (07:50)
[2019-09-13] MEDS ORDERED: LIDOCAINE 1% INJ-PF (10 MG/ML) 30 ML SDV ONE (07:50)
[2019-09-13] MEDS ORDERED: MORPHINE SULFATE 10 MG/ML INJ IV PRN (08:24)
[2019-09-13] MEDS ORDERED: ONDANSETRON HCL INJ/PF 4 MG/2 ML SDV IV PRN ×2 (08:24→09:06)
[2019-09-13] MEDS ORDERED: OXYCODONE-ACETAMINOPHEN 5-325 MG TABLET PO PRN ×2 (08:24)
[2019-09-13] MEDS ORDERED: MEPERIDINE HCL/PF INJ 25 MG/1 ML DISP.SYRIN IV PRN (08:24)
[2019-09-13] MEDS ORDERED: FENTANYL CITRATE INJ/PF 100 MCG/2 ML AMPUL IV PRN ×3 (08:24)
[2019-09-13] MEDS ORDERED: DIPHENHYDRAMINE HCL 50 MG/ML VIAL IV PRN (08:24)
[2019-09-13] MEDS ORDERED: PROMETHAZINE HCL INJ 25 MG/1 ML VIAL IV PRN ×2 (08:24)
[2019-09-13] MEDS ORDERED: CEFAZOLIN INJ 1 GM VIAL ONE (08:56)
--- NOTE | 2019-09-13 08:59 | Operative Report ---
Operative Report DATE OF SURGERY: 09/13/19 PREOPERATIVE DIAGNOSIS: Failure spinal cord stimulator implantable pulse genera tor POSTOPERATIVE DIAGNOSIS: Same OPERATION: 1. Revision implantable pulse generator pocket 2. replacement implantable pulse generator SURGEON: ELDA ARZATE ANESTHESIA: LMAC TISSUE REMOVED OR ALTERED: Old battery was removed and discarded COMPLICATIONS: None ESTIMATED BLOOD LOSS: 5 mL INTRAOPERATIVE FINDINGS: Good impedances with replacement of implantable pulse generator PROCEDURE: Date of Surgery: 09/13/2019 Preoperative Diagnosis: Nonfunctional battery at end of life Postoperative Diagnosis:Same Procedure: SCS Battery Replacement Surgeon: Elda Arzate MD Pressure Testing Technician: None Anesthesia: MAC Complications: None Procedure Detail: After obtaining informed consent and advising the patient of the risks and benefits, including serious neurological injury, bleeding and infection, allergic reaction and , the patient was taken to the operating room. The patient was placed comfortably in the prone position. Comfort was assessed visually and verbally. The patient was then prepped with chlorhexidine with a suitable drying time prior to drapping. The pulse generator was readily palpable and site marked. The previous incisional scar was anesthetized with 1% lidocaine with bicarbonate, followed by bupivacaine 0.25% with epinephrine. Sharp and blunt dissection were performed down to the pulse generator taking care to avoid the SCS wires. This was readily identified. Electrocautery was minimally necessary for hemostasis. The old generator was removed easily. A small relaxing incision was made in the scar capsule of the pulse generator pocket to facilitate placement of the new battery. The new generator was connected to the electrodes. All hex nuts were secured. The generator was placed in the pocket and impedance was tested and was felt to be satisfactory. Good connectivity with the new generator was obtained. The wound was then copiously irrigated with Betadine containing irrigation solution. The site was then closed with interrupted vertical mattress sutures with 2-0 Polysorb. The skin came together nicely. The region was cleansed again followed by placement of dermabond tape and cement. When this was dry, suitable tegaderm sponge dressing was placed. The patient was then taken back to PACU for postoperative care and monitoring.
[2019-09-13] MEDS ORDERED: HYDROCODONE/ACETAMINOPHEN 5-325 MG TABLET PO PRN (09:18)
--- NOTE | 2019-09-13 11:16 | RADIOLOGY REPORT (SQ) ---
EXAM DESCRIPTION: NO CHG FLUORO; SPINE SINGLE VIEW COMPLETED DATE/TIME: 09/13/2019 9:02 am REASON FOR STUDY: SPINAL STIMULATOR BATTERY REMOVAL ASST WITH FLUORO IN OR COMPARISON: None. FLUOROSCOPY TIME: Less than 5 seconds 2 digital C-arm Images saved to PACS LIMITATIONS: None. FINDINGS: 2 digital C-arm images demonstrate neurostimulator electrodes over the lower thoracic spin e. Please see the operative report for further details IMPRESSION: Intra procedural imaging and fluoro COMMENT: PQRS 6045F: Fluoroscopy time of the procedure is documented in the report. TECHNICAL DOCUMENTATION: JOB ID: [id number] 2010 [employer]- All Rights Reserved Reading location - IP/workstation name: [email or web address]
--- NOTE | 2019-09-13 11:16 | RADIOLOGY REPORT (SQ) ---
EXAM DESCRIPTION: NO CHG FLUORO; SPINE SINGLE VIEW COMPLETED DATE/TIME: 09/13/2019 9:02 am REASON FOR STUDY: SPINAL STIMULATOR BATTERY REMOVAL ASST WITH FLUORO IN OR COMPARISON: None. FLUOROSCOPY TIME: Less than 5 seconds 2 digital C-arm Images saved to PACS LIMITATIONS: None. FINDINGS: 2 digital C-arm images demonstrate neurostimulator electrodes over the lower thoracic spin e. Please see the operative report for further details IMPRESSION: Intra procedural imaging and fluoro COMMENT: PQRS 6045F: Fluoroscopy time of the procedure is documented in the report. TECHNICAL DOCUMENTATION: JOB ID: [id number] 2010 [employer]- All Rights Reserved Reading location - IP/workstation name: [email or web address]
[2019-09-13 12:18] VITALS: BP 117/79
== END 2019-09-13 10:30 | disposition home or self-care (01) ==
LOC: OROUT 06:02
PROVIDERS: ATTEND Pain Medicine Interventional Pain Medicine
DX: M96.1 Postlaminectomy syndrome, not elsewhere classified (principal); F17.210 Nicotine dependence, cigarettes, uncomplicated; Z79.899 Other long term (current) drug therapy; E78.00 Pure hypercholesterolemia, unspecified; I10 Essential (primary) hypertension
CPT/HCPCS: 72020; 00300; 63685; C1820; J2250; J3490 ×3; J0690 ×2; J3010; J2704; 300

== ENCOUNTER 2019-11-10 14:36 | Emergency (ER) | payer MEDICARE, OTHER ==
[2019-11-10] MEDS ORDERED: HYDROCODONE/ACETAMINOPHEN 5-325 MG TABLET PO ONE (14:54)
--- NOTE | 2019-11-10 15:08 | ER Document Report ---
ED Medical Screen (RME) - General Stated Complaint: RIGHT FINGER INJURY Time Seen by Provider: 11/10/19 14:53 Primary Care Provider: ADNNY MCWILLIAMS DO [Primary Care Provider] - Follow up as needed TRAVEL OUTSIDE OF THE [place] IN LAST 30 DAYS: No - HPI Notes: 11/10/19 15:02 59 yr old male presents today for evaluation for right 2nd distal phalange with laceration and slight deformity from a folding metal ladder approx 2 hours ago. no other area of injury. pt is not on blood thinners, no otc meds tried. pain is 7/10. bleeding is slightly controlled. reports numbness to his right 2nd phalanx. no cp, sob, n/v/d. no fevers or chills. Patient seen and examined for rapid initial assessment. Vital signs reviewed. A comprehensive ED assessment and evaluation of the patient, analysis of test results and completion of the medical decision making process will be conducted by additional ED providers. PHYSICAL EXAMINATION: GENERAL: Well-appearing, well-nourished and in no acute distress. CV: s1, s2 regular LUNGS: No respiratory distress Musculoskeletal: Normal range of motion NEUROLOGICAL: Normal speech, normal gait. SKIN: Warm, Dry, normal turgor, no rashes or lesions noted. right 2nd phalange with near circumferential distal to DIP with slight deformity, cap refill >3 seconds. bleeding controlled - Related Data Allergies/Adverse Reactions: No Known Allergies Allergy (Verified 09/13/19 06:32) Past Medical History - Past Medical History Cardiac Medical History: Reports: Hx Hypercholesterolemia, Hx Hypertension Denies: Hx Coronary Artery Disease, Hx Heart Attack Pulmonary Medical History: Denies: Hx Asthma, Hx Bronchitis, Hx COPD, Hx Pneumonia Neurological Medical History: Denies: Hx Cerebrovascular Accident, Hx Seizures Musculoskeltal Medical History: Denies Hx Arthritis Past Surgical History: Reports: Hx Orthopedic Surgery - Immunizations Hx Diphtheria, Pertussis, Tetanus Vaccination: Yes Physical Exam - Vital signs Vitals: Temp Pulse Resp BP Pulse Ox 98.1 F 62 16 138/71 H 97 11/10/19 14:42 11/10/19 14:42 11/10/19 14:42 11/10/19 14:42 11/10/19 14:42 Course - Vital Signs Vital signs: Temp Pulse Resp BP Pulse Ox 98.1 F 62 16 138/71 H 97 11/10/19 14:42 11/10/19 14:42 11/10/19 14:42 11/10/19 14:42 11/10/19 14:42 Doctor's Discharge - Discharge Referrals: DANNY MCWILLIAMS DO [Primary Care Provider] - Follow up as needed
[2019-11-10] MEDS ORDERED: LIDOCAINE 1% INJ (10 MG/ML) 10 ML MDV INJ ONE (15:21)
--- NOTE | 2019-11-10 15:44 | RADIOLOGY REPORT (SQ) ---
EXAM DESCRIPTION: FINGER RIGHT IMAGES COMPLETED DATE/TIME: 11/10/2019 3:11 pm REASON FOR STUDY: 2nd distal phalanx w/ lac, r/o fx/fb COMPARISON: None. NUMBER OF VIEWS: Three views. TECHNIQUE: AP, lateral, and oblique images acquired of the right second finger. LIMITATIONS: None. FINDINGS: MINERALIZATION: Normal. BONES: Comminuted fracture of the distal tuft. SOFT TISSUES: Adjacent skin laceration. No foreign body OTHER: No other significant finding. IMPRESSION: Open fracture distal tuft. COMMENT: SITE OF TRAUMA/COMPLAINT MARKED/STAMP COMPLETED: NOT APPLICABLE. TECHNICAL DOCUMENTATION: JOB ID: [id number] 2010 [employer]- All Rights Reserved Reading location - IP/workstation name: [email or web address]
--- NOTE | 2019-11-10 16:01 | ER Document Report ---
Entered by ANTELMO MOE SCRIBE 11/10/19 1521 Acting as scribe for:TRAVIS SOTO DO ED General - General Stated Complaint: RIGHT FINGER INJURY Time Seen by Provider: 11/10/19 14:53 Primary Care Provider: DANNY MCWILLIAMS DO [Primary Care Provider] - Follow up as needed Information source: Patient Notes: This 59-year-old right-handed male presents to the emergency department after an injury to his right index finger that happened about 2 hours ago. Patient describes the pain as throbbing and 7/10. Patient explains that he got his finger caught in a folding ladder. Patient reports last tetanus shot was in 2014. Patient denies chest pain, shortness of breath, fever and chills. TRAVEL OUTSIDE OF THE [place] IN LAST 30 DAYS: No - Related Data Allergies/Adverse Reactions: No Known Allergies Allergy (Verified 09/13/19 06:32) Past Medical History - General Information source: Patient - Social History Smoking Status: Never Smoker Cigarette use (# per day): No Chew tobacco use (# tins/day): No Family History: Reviewed & Not Pertinent - Past Medical History Cardiac Medical History: Reports: Hx Hypercholesterolemia, Hx Hypertension Past Surgical History: Reports: Hx Orthopedic Surgery - Immunizations Hx Diphtheria, Pertussis, Tetanus Vaccination: Yes Review of Systems - Review of Systems Constitutional: See HPI. denies: Chills, Fever EENT: No symptoms reported Cardiovascular: See HPI. denies: Chest pain Respiratory: See HPI. denies: Short of breath Gastrointestinal: No symptoms reported Genitourinary: No symptoms reported Male Genitourinary: No symptoms reported Musculoskeletal: See HPI, Other - Right finger pain Skin: No symptoms reported Hematologic/Lymphatic: No symptoms reported Neurological/Psychological: No symptoms reported -: Yes All other systems reviewed and negative Physical Exam - Vital signs Vitals: Temp Pulse Resp BP Pulse Ox 98.1 F 62 16 138/71 H 97 11/10/19 14:42 11/10/19 14:42 11/10/19 14:42 11/10/19 14:42 11/10/19 14:42 - Notes Notes: Physical Exam: General: Alert, appears well. HEENT: Normocephalic. Atraumatic. PERRL. Extraocular movements intact. Oropharynx clear. Neck: Supple. Non-tender. Respiratory: No respiratory distress. Clear and equal breath sounds bilaterally. Cardiovascular: Regular rate and rhythm. Abdominal: Normal Inspection. Non-tender. No distension. Normal Bowel Sounds. Back: No gross abnormalities. Extremities: Moves all four extremities. Upper extremities: Normal ROM. Right Hand: Matrix of the nail has a laceration. Other lacerations noted were medially and laterally on index finger. Total length is 2.25 cm. Neurovascularly Intact at tip. Subungual hematoma on index finger. No other injuries noted. Lower extremities: Normal inspection. No edema. Normal ROM. Neurological: Normal cognition. AAOx4. Normal speech. Psychological: Normal affect. Normal Mood. Skin: Warm. Dry. Normal color. Course - Vital Signs Vital signs: Temp Pulse Resp BP Pulse Ox 98.1 F 62 16 138/71 H 97 11/10/19 14:42 11/10/19 14:42 11/10/19 14:42 11/10/19 14:42 11/10/19 14:42 Procedures - Laceration/Wound Repair Right Dorsal Hand 2nd digit Time completed: 16:00 Wound length (cm): 2.2 Wound's Depth, Shape: Irregular, Flap, Nail-avulsed, Contused tissue Laceration pre-procedure: Chloraprep applied Anesthetic type: 1% Lidocaine Volume Anesthetic (mLs): 8 Wound explored: Clean Wound Repaired With: Sutures Suture Size/Type: 4:0, Ethilon - After digital block of right index finger the wound was closed with 4-0 nylon sutures. The germinal matrix of the nail is involved in the injury and there is a subungal hematoma. Wound well approximated. Number of Sutures: 6 Layer Closure?: No Discharge - Discharge Clinical Impression: Laceration of index finger Qualifiers: Encounter type: initial encounter Damage to nail status: with damage Foreign body presence: without foreign body Laterality: right Qualified Code(s): S61.310A - Laceration without foreign body of right index finger with damage to nail, initial encounter Fracture of phalanx of right hand, open Qualifiers: Encounter type: initial encounter Finger: index finger Phalanx: distal Fracture alignment: displaced Qualified Code(s): S62.630B - Displaced fracture of distal phalanx of right index finger, initial encounter for open fracture Condition: Good Disposition: HOME, SELF-CARE Instructions: Laceration Care ([facility]), Soap Cleansing ([facility]), Oral Narcotic Medication ([facility]) Additional Instructions: See your doctor or the orthopedic doctor or here in follow up early next week. Rest. Please return here for redness or streaking or drainage from the wound. Take 2 doses of the antibiotic daily and 2 doses today. Referrals: DANNY MCWILLIAMS DO [Primary Care Provider] - Follow up as needed VERNON PRICE MD [ACTIVE PROVISIONAL STAFF] - Follow up as needed I personally performed the services described in the documentation, reviewed and edited the documentation which was dictated to the scribe in my presence, and it accurately records my words and actions.
[2019-11-10] MEDS ORDERED: AMOXICILLIN TR/POT CLAVULANATE 875-125 MG TAB PO ONE (16:02)
[2019-11-10] MEDS ORDERED: HYDROCODONE/ACETAMINOPHEN 5-325 MG (6 TAB/ER DISP) PO PRN (16:02)
[2019-11-10 16:39] VITALS: BP 151/78
== END 2019-11-10 16:37 | disposition home or self-care (01) ==
LOC: ER 14:36
DX: S62.630B Displaced fracture of distal phalanx of right index finger, initial encounter for open fracture (principal); W23.0XXA Caught, crushed, jammed, or pinched between moving objects, initial encounter; Y93.89 Activity, other specified; I10 Essential (primary) hypertension
CPT/HCPCS: 99282; 73140; 12001; A9270 ×2; J3490

== ENCOUNTER 2020-01-16 06:58 | Day surgery (SDC) | payer MEDICARE, OTHER ==
[~2020-01-16 06:58] MED LIST changes: -CEFAZOLIN 1 GM/D5W RTU 1 GM/50 ML RTUPB IV ONE; -CEFAZOLIN 1 GM/D5W RTU 1 GM/50 ML RTUPB IV PRN; +GLYCOPYRROLATE 1 MG/5 ML VIAL ONE; -LACTATED RINGERS 1000 ML IV PRN; -LIDOCAINE 0.5% INJ-PF (5 MG/ML) 50 ML SDV SUBCUT PRN
[2020-01-16] MEDS ORDERED: PROPOFOL INJ 200 MG/20 ML VIAL IV ONE (07:17)
--- NOTE | 2020-01-16 09:47 | Operative Report ---
Operative Report DATE OF SURGERY: 01/16/20 Operative Report: The risks benefits and alternatives of the procedure explained to the patient in detail and informed consent is obtained.A GIF Olympus video scope was inserted into the patient's mouth and hypopharynx, the esophagus is identified intubated and insufflated, the scope was then advanced through the esophagus stomach and duodenum, retroflexion maneuver is done ,the esophagus stomach and first and second portions of the duodenum examined PREOPERATIVE DIAGNOSIS: Gastroesophageal reflux disease POSTOPERATIVE DIAGNOSIS: Gastritis status post biopsy rule out H. pylori OPERATION: EGD with biopsy SURGEON: NICOLA BROWNING ANESTHESIA: LMAC TISSUE REMOVED OR ALTERED: As noted above. COMPLICATIONS: None. ESTIMATED BLOOD LOSS: None. INTRAOPERATIVE FINDINGS: As noted above. PROCEDURE: Patient tolerated the procedure well. No immediate postprocedure complications are noted. Patient is discharged in good condition. Discharge date 01/16/2020. Discharge diet: Regular. Discharge activity: Regular. 2 to 3-week follow-up to discuss findings. Patient is instructed call the office or proceed to the emergency room should there be any further problems or questions. Wait on the pathology.
[2020-01-16 10:25] VITALS: BP 114/83
== END 2020-01-16 10:30 | disposition home or self-care (01) ==
LOC: END 06:58
PROVIDERS: ATTEND Internal Medicine Gastroenterology
DX: K21.9 Gastro-esophageal reflux disease without esophagitis (principal); K29.50 Unspecified chronic gastritis without bleeding; Z87.891 Personal history of nicotine dependence; I10 Essential (primary) hypertension; Z03.818 Encounter for observation for suspected exposure to other biological agents ruled out; E78.5 Hyperlipidemia, unspecified; Z79.899 Other long term (current) drug therapy
CPT/HCPCS: 43239; 88305 ×2; 00731; U0003; J2704; J3490; C9803; 731; 87635